=== PATIENT | female | born 1955 | race Caucasian/White ===

== ENCOUNTER 2021-03-05 17:05 | Emergency (ER) | payer MEDICARE, OTHER ==
[2021-03-05] MEDS ORDERED: Ondansetron 4 MG Tab.DIS PO ONE (18:07)
--- NOTE | 2021-03-05 18:07 | EDM.PDOC ---
ED HPI GENERAL MEDICAL PROBLEM - General Chief Complaint: Gastrointestinal Problem Stated Complaint: nausea Time Seen by Provider: 03/05/21 17:10 Source of Information: Reports: Patient, Family History Limitations: Reports: No Limitations - History of Present Illness INITIAL COMMENTS - FREE TEXT/NARRATIVE: Patient states that her made her come to come get checked out secondary to he has been around her diagnosed with Covid only complaint that the patient has at this time is just chronic nausea that is been going on for about a week. She says she has been eating and drinking normally with no issues she just has a chronic nausea feeling. She was been with the patient ever since he was diagnosed although she was not seen in the ER the other night nor has she been tested. She has no other complaints at this time states she is doing okay overall Duration: Day(s): Quality: Denies: Ache, Burning (no pain ) Improves with: Reports: None Worsens with: Reports: None Associated Symptoms: Reports: No Other Symptoms, Nausea/Vomiting. Denies: Chest Pain, Cough, cough w sputum, Diaphoresis, Fever/Chills, Headaches, Loss of Appetite, Malaise, Shortness of Breath - Related Data Allergies Allergy/AdvReac Type Severity Reaction Status Date / Time guaifenesin [From Robitussin] Allergy Nausea Verified 03/05/21 18:15 pseudoephedrine Allergy Cannot Verified 03/05/21 18:15 [From Actifed] Remember Sulfa (Sulfonamide Allergy Rash Verified 03/05/21 18:15 Antibiotics) triprolidine [From Actifed] Allergy Cannot Verified 03/05/21 18:15 Remember Home Meds: Home Meds Levothyroxine [Synthroid] 50 mcg PO DAILY 09/22/16 [History] Omeprazole 20 mg PO DAILY 09/22/16 [History] Venlafaxine HCl [Venlafaxine ER] 150 mg PO DAILY 09/22/16 [History] glipiZIDE [Glipizide] 2.5 mg PO BID 09/22/16 [History] metFORMIN HCl [Metformin HCl] 1,000 mg PO BID 09/22/16 [History] Cholecalciferol (Vitamin D3) [Vitamin D3] 1,000 unit PO DAILY 09/18/20 [History] Furosemide 20 mg PO DAILY 09/18/20 [History] Rosuvastatin [Crestor] 5 mg PO DAILY 09/18/20 [History] buPROPion HCL [Wellbutrin Xl] 300 mg PO DAILY 09/18/20 [History] Past Medical History HEENT History: Reports: Allergic Rhinitis, Cataract, Sinusitis, Other (See Below) Other HEENT History: paradoxic hearing loss; both astigmatism; dry eyes; epiphora; rt ptosis Cardiovascular History: Reports: Heart Failure, High Cholesterol, Other (See Below) Other Cardiovascular History: mitral valve prolapse Respiratory History: Reports: Sleep Apnea, Other (See Below) Other Respiratory History: Cpap with Oxygen at night Gastrointestinal History: Reports: Chronic Diarrhea, GERD, Other (See Below) Other Gastrointestinal History: Barrets Esophagus Musculoskeletal History: Reports: Back Pain, Chronic, Osteoarthritis, Other (See Below) Other Musculoskeletal History: DJD; pes planus Neurological History: Reports: Neuropathy, Diabetic Psychiatric History: Reports: Depression Endocrine/Metabolic History: Reports: Diabetes, Type II, Hypothyroidism, Obesity/BMI 30+, Vitamin D Deficiency Dermatologic History: Reports: Other (See Below) Other Dermatologic History: furuncle - Past Surgical History GI Surgical History: Reports: Cholecystectomy, Hernia Repair/Other, Other (See Below) Other GI Surgeries/Procedures: Umbilical hernia repair Female Surgical History: Reports: Breast Reduction, Hysterectomy Musculoskeletal Surgical History: Reports: Carpal Tunnel, Other (See Below) Other Musculoskeletal Surgeries/Procedures:: Neck ruptured discs, C4-5 fusion ED ROS GENERAL - Review of Systems Review Of Systems: See Below Constitutional: Reports: No Symptoms HEENT: Reports: No Symptoms Respiratory: Reports: No Symptoms Cardiovascular: Reports: No Symptoms Endocrine: Reports: No Symptoms GI/Abdominal: Reports: Nausea, Other (No loss of taste or smell). Denies: Abdominal Pain, Vomiting : Reports: No Symptoms Musculoskeletal: Reports: No Symptoms Skin: Reports: No Symptoms Neurological: Reports: No Symptoms Psychiatric: Reports: No Symptoms Hematologic/Lymphatic: Reports: No Symptoms Immunologic: Reports: No Symptoms ED EXAM, GI/ABD - Physical Exam Exam: See Below Exam Limited By: No Limitations General Appearance: Alert, WD/WN, No Apparent Distress, Other (Patient is talking wide open no acute symptoms) Eyes: Bilateral: Normal Appearance Nose: Normal Inspection, Normal Mucosa, No Blood Throat/Mouth: Normal Inspection, Normal Lips, Normal Teeth, Normal Gums, Normal Oropharynx, Normal Voice, No Airway Compromise, Other (mmm) Head: Atraumatic, Normocephalic. No: Facial Tenderness, Sinus Tenderness Neck: Normal Inspection, Supple, Non-Tender, Full Range of Motion Respiratory/Chest: No Respiratory Distress, Lungs Clear, Normal Breath Sounds, No Accessory Muscle Use, Chest Non-Tender Cardiovascular: Normal Peripheral Pulses, Regular Rate, Rhythm, No Edema, No Gallop, No JVD, No Murmur, No Rub GI/Abdominal Exam: Normal Bowel Sounds, Soft, Non-Tender, No Organomegaly, No Distention, No Abnormal Bruit Back Exam: Normal Inspection, Full Range of Motion Extremities: Normal Inspection, Normal Range of Motion, Non-Tender, No Pedal Edema, Normal Capillary Refill Neurological: Alert, Oriented, CN II-XII Intact, Normal Cognition, Normal Gait, Normal Reflexes, No Motor/Sensory Deficits Psychiatric: Normal Affect, Normal Mood Skin Exam: Warm, Dry, Intact, Normal Color, No Rash Lymphatic: No Adenopathy Course - Vital Signs Text/Narrative:: Secondary to patient being exposed to her who is positive for Covid I will not test her at this time secondary to she is only having symptoms of nausea I will give her some Zofran p.o. and a prescription Zofran 4 mg 1 p.o. every 4-6 hours as needed #30 Follow-up with your primary care provider in the next 24 to 48 hours if anything changes. Last Recorded V/S: Last Vital Signs Temp 36.6 C 03/05/21 17:10 Pulse 99 03/05/21 17:10 Resp 18 03/05/21 17:10 BP 103/50 L 03/05/21 17:10 Pulse Ox 96 03/05/21 17:10 - Orders/Labs/Meds Meds: Medications Discontinued Medications Generic Name Dose Route Start Last Admin Trade Name Freq PRN Reason Stop Dose Admin Ondansetron HCl 4 mg 03/05/21 18:07 Ondansetron 4 Mg Tab.Dis PO 03/05/21 18:08 ONETIME ONE Departure - Departure Time of Disposition: 18:00 Disposition: Home, Self-Care 01 Condition: Good Clinical Impression: Nausea - Discharge Information *PRESCRIPTION DRUG MONITORING PROGRAM REVIEWED*: No *COPY OF PRESCRIPTION DRUG MONITORING REPORT IN PATIENT MARISEL: No Instructions: Nausea, Adult Referrals: PCP,Unknown [Primary Care Provider] - Forms: ED Department Discharge Additional Instructions: Follow-up with your primary care provider make sure you are drinking plenty of fluids and getting plenty of rest as tolerated take the Zofran 4 mg 1 tablet every 4-6 hours as directed as needed If anything changes return here to the emergency room Sepsis Event Note (ED) - Focused Exam Vital Signs: Vital Signs Temp Pulse Resp BP Pulse Ox 03/05/21 17:10 36.6 C 99 18 103/50 L 96 - Problem List & Annotations (1) Nausea SNOMED Code(s): 105768851 Code(s): R11.0 - NAUSEA Status: Acute Current Visit: Yes
[2021-03-05 18:13] VITALS: BP 103/50; PULSE 99
== END 2021-03-05 20:15 | disposition home or self-care (01) ==
LOC: VM.ED 17:05
DX: R11.0 Nausea (principal); E78.00 Pure hypercholesterolemia, unspecified; I50.9 Heart failure, unspecified; E11.40 Type 2 diabetes mellitus with diabetic neuropathy, unspecified; K21.9 Gastro-esophageal reflux disease without esophagitis; E03.9 Hypothyroidism, unspecified; E66.9 Obesity, unspecified; Z88.2 Allergy status to sulfonamides; Z88.8 Allergy status to other drugs, medicaments and biological substances; Z79.84 Long term (current) use of oral hypoglycemic drugs
CPT/HCPCS: 99283

== ENCOUNTER 2021-03-08 10:50 | Observation (INO) | payer MEDICARE, OTHER ==
[2021-03-08] MEDS ORDERED: Sodium Chloride 0.9% 10 ML Syringe FLUSH PRN (11:32)
[2021-03-08] MEDS ORDERED: Ondansetron 4 MG/2 ML SDV IVPUSH ONE (11:59)
[2021-03-08] MEDS ORDERED: Sodium Chloride 0.9% 1,000 ML IV SCH (12:00)
[2021-03-08] MEDS ORDERED: Ondansetron 4 MG/2 ML SDV ONE (12:10)
[2021-03-08 12:11] LABS: CHLORIDE,CL 102 mmol/L (98-107); SODIUM,NA 140 mmol/L (136-145)
[2021-03-08 12:25] LABS: ANION GAP 13.2 mmol/L (5-15)
[2021-03-08] MEDS ORDERED: REMDESIVIR 200 MG in Sodium Chloride 0.9% 250 ML IV ONE ×2 (13:58→15:00)
--- NOTE | 2021-03-08 17:32 | EDM.PDOC ---
ED HPI GENERAL MEDICAL PROBLEM - General Stated Complaint: WEAKNESS Time Seen by Provider: 03/08/21 11:00 Source of Information: Reports: Patient, EMS History Limitations: Reports: No Limitations - History of Present Illness INITIAL COMMENTS - FREE TEXT/NARRATIVE: Pt. presents to ER with complaints of weakness, cough, congestion, and fatigue. Pt. states that her has covid, and she states that she has been having symptoms of this as well for approx. 2 weeks. She has not be screened however. Pt. denies any respiratory symptoms. Denies any shortness of breath, lightheadedness, chest pain, and only has some mild cough. Pt. states that she is particularly lightheaded when she is standing. Pt. primary complaint is that of weakness and fatigue. She states that she has not been eating or drinking, complains of some nausea and mild vomiting. Pt. lives in [place], [place] with her who is also quite ill. Neither patient feel that they are able to care for themselves at home. Onset: Today Onset Date: 03/08/21 Location: Reports: Generalized Improves with: Reports: Rest Worsens with: Reports: Movement Associated Symptoms: Reports: Cough, Fever/Chills, Malaise, Nausea/Vomiting, Weakness - Related Data Allergies Allergy/AdvReac Type Severity Reaction Status Date / Time pseudoephedrine Allergy Cannot Verified 03/05/21 18:15 [From Actifed] Remember Sulfa (Sulfonamide Allergy Rash Verified 03/05/21 18:15 Antibiotics) triprolidine [From Actifed] Allergy Cannot Verified 03/05/21 18:15 Remember guaifenesin [From Robitussin] AdvReac Nausea Verified 03/08/21 14:06 Home Meds: Home Meds Levothyroxine [Synthroid] 50 mcg PO DAILY 09/22/16 [History] Omeprazole 20 mg PO DAILY 09/22/16 [History] Venlafaxine HCl [Venlafaxine ER] 150 mg PO DAILY 09/22/16 [History] glipiZIDE [Glipizide] 2.5 mg PO BID 09/22/16 [History] metFORMIN HCl [Metformin HCl] 1,000 mg PO BID 09/22/16 [History] Cholecalciferol (Vitamin D3) [Vitamin D3] 1,000 unit PO DAILY 09/18/20 [History] Furosemide 20 mg PO DAILY 09/18/20 [History] Rosuvastatin [Crestor] 5 mg PO DAILY 09/18/20 [History] buPROPion HCL [Wellbutrin Xl] 300 mg PO DAILY 09/18/20 [History] Past Medical History HEENT History: Reports: Allergic Rhinitis, Cataract, Sinusitis, Other (See Below) Other HEENT History: paradoxic hearing loss; both astigmatism; dry eyes; epiphora; rt ptosis Cardiovascular History: Reports: Heart Failure, High Cholesterol, Other (See Below) Other Cardiovascular History: mitral valve prolapse Respiratory History: Reports: Sleep Apnea, Other (See Below) Other Respiratory History: Cpap with Oxygen at night Gastrointestinal History: Reports: Chronic Diarrhea, GERD, Other (See Below) Other Gastrointestinal History: Barrets Esophagus Musculoskeletal History: Reports: Back Pain, Chronic, Osteoarthritis, Other (See Below) Other Musculoskeletal History: DJD; pes planus Neurological History: Reports: Neuropathy, Diabetic Psychiatric History: Reports: Depression Endocrine/Metabolic History: Reports: Diabetes, Type II, Hypothyroidism, Obesity/BMI 30+, Vitamin D Deficiency Dermatologic History: Reports: Other (See Below) Other Dermatologic History: furuncle - Past Surgical History GI Surgical History: Reports: Cholecystectomy, Hernia Repair/Other, Other (See Below) Other GI Surgeries/Procedures: Umbilical hernia repair Female Surgical History: Reports: Breast Reduction, Hysterectomy Musculoskeletal Surgical History: Reports: Carpal Tunnel, Other (See Below) Other Musculoskeletal Surgeries/Procedures:: Neck ruptured discs, C4-5 fusion ED ROS GENERAL - Review of Systems Review Of Systems: See Below Constitutional: Reports: Malaise, Weakness, Fatigue HEENT: Reports: No Symptoms Respiratory: Reports: Cough Cardiovascular: Reports: No Symptoms Endocrine: Reports: No Symptoms GI/Abdominal: Reports: No Symptoms : Reports: No Symptoms Musculoskeletal: Reports: No Symptoms Skin: Reports: No Symptoms Neurological: Reports: Weakness Psychiatric: Reports: No Symptoms Hematologic/Lymphatic: Reports: No Symptoms Immunologic: Reports: No Symptoms ED EXAM, GENERAL - Physical Exam Exam: See Below Exam Limited By: No Limitations General Appearance: Alert, WD/WN, No Apparent Distress Eye Exam: Bilateral Eye: EOMI Throat/Mouth: Normal Inspection, Normal Lips, Normal Oropharynx, Normal Voice, No Airway Compromise Head: Atraumatic, Normocephalic Neck: Normal Inspection, Supple, Non-Tender, Full Range of Motion Respiratory/Chest: No Respiratory Distress, Lungs Clear, Normal Breath Sounds, No Accessory Muscle Use, Chest Non-Tender Cardiovascular: Normal Peripheral Pulses, Regular Rate, Rhythm, No Edema, No JVD, No Murmur GI/Abdominal: Normal Bowel Sounds, Soft, Non-Tender, No Organomegaly, No Distention, No Mass (Female) Exam: Deferred Rectal (Female) Exam: Deferred Extremities: Normal Inspection, Normal Range of Motion, Non-Tender, No Pedal Edema, Normal Capillary Refill Neurological: Alert, Oriented, CN II-XII Intact, Normal Cognition, Normal Reflexes, No Motor/Sensory Deficits Psychiatric: Normal Affect, Normal Mood Skin Exam: Warm, Dry, Intact, Pallor Lymphatic: No Adenopathy Course - Orders/Labs/Meds Orders: Active Orders 24 hr Category Date Time Status CULTURE BLOOD [BC] Stat Lab 03/08/21 11:26 Received CULTURE BLOOD [BC] Stat Lab 03/08/21 12:00 Received Sodium Chloride 0.9% [Normal Saline] 1,000 ml Med 03/08/21 12:00 Active IV ASDIRECTED Sodium Chloride 0.9% [Saline Flush] Med 03/08/21 11:32 Active 10 ml FLUSH ASDIRECTED PRN Blood Culture x2 Reflex Set [OM.PC] Stat Oth 03/08/21 11:33 Ordered Peripheral IV Insertion Adult [OM.PC] Routine Oth 03/08/21 11:33 Ordered Medication Orders Enoxaparin Sodium (Enoxaparin 40 Mg/0.4 Ml Syringe) 40 mg SUBCUT DAILY TORIN Sodium Chloride (Normal Saline) 1,000 mls @ 1,000 mls/hr IV ASDIRECTED TORIN Last Admin: 03/08/21 11:25 Dose: 1,000 mls/hr Documented by: WENDALA Remdesivir 100 mg/ Sodium (Chloride) 100 mls @ 100 mls/hr IV Q24H TORIN Stop: 03/12/21 16:29 Sodium Chloride (Sodium Chloride 0.9% 10 Ml Syringe) 10 ml FLUSH ASDIRECTED PRN PRN Reason: Keep Vein Open Last Admin: 03/08/21 17:17 Dose: 10 ml Documented by: MARCELINA Labs: Laboratory Tests 03/08/21 03/08/21 03/08/21 Range/Units 11:23 11:26 11:26 WBC 5.1 (4.0-10.0) x10^3/uL RBC 4.37 (4.00-5.50) x10^6/uL Hgb 14.1 (12.0-16.0) g/dL Hct 39.9 (33.0-47.0) % MCV 91.3 (78.0-93.0) fL MCH 32.3 H (26.0-32.0) pg MCHC 35.3 (32.0-36.0) g/dL RDW Coeff of Lily 12.5 (10.0-15.0) % Plt Count 224 (130-400) x10^3/uL Neut % (Auto) 65.8 (50.0-80.0) % Lymph % (Auto) 20.2 L (25.0-50.0) % [place] % (Auto) 13.4 H (2.0-11.0) % Eos % (Auto) 0.4 (0.0-4.0) % Baso % (Auto) 0.2 (0.2-1.2) % PT 11.0 (9.9-12.5) SEC INR 1.0 L (2.0-3.5) APTT (25.6-32.8) SEC Sodium (136-145) mmol/L Potassium (3.5-5.1) mmol/L Chloride (98-107) mmol/L Carbon Dioxide (21-32) mmol/L Anion Gap (5-15) mmol/L BUN (7-18) mg/dL Creatinine (0.55-1.02) mg/dL Est Cr Clr Drug Dosing Estimated GFR (MDRD) Glucose (70-99) mg/dL Lactic Acid (0.4-2.0) mmol/L Calcium (8.5-10.1) mg/dL Corrected Calcium (8.5-10.1) mg/dL Magnesium (1.8-2.4) mg/dL Ferritin (8-252) ng/mL Total Bilirubin (0.2-1.0) mg/dL AST (15-37) U/L ALT (14-59) U/L Alkaline Phosphatase (46-116) U/L Lactate Dehydrogenase (81-234) U/L C-Reactive Protein (<=0.9) mg/dL Total Protein (6.4-8.2) g/dL Albumin (3.4-5.0) g/dL Globulin Albumin/Globulin Ratio SARS CoV-2 RNA Rapid CARIE Positive H (NEGATIVE) 03/08/21 03/08/21 03/08/21 Range/Units 11:26 11:26 11:26 WBC (4.0-10.0) x10^3/uL RBC (4.00-5.50) x10^6/uL Hgb (12.0-16.0) g/dL Hct (33.0-47.0) % MCV (78.0-93.0) fL MCH (26.0-32.0) pg MCHC (32.0-36.0) g/dL RDW Coeff of Lily (10.0-15.0) % Plt Count (130-400) x10^3/uL Neut % (Auto) (50.0-80.0) % Lymph % (Auto) (25.0-50.0) % [place] % (Auto) (2.0-11.0) % Eos % (Auto) (0.0-4.0) % Baso % (Auto) (0.2-1.2) % PT (9.9-12.5) SEC INR (2.0-3.5) APTT 22.0 L (25.6-32.8) SEC Sodium 140 (136-145) mmol/L Potassium 3.2 L (3.5-5.1) mmol/L Chloride 102 (98-107) mmol/L Carbon Dioxide 28 (21-32) mmol/L Anion Gap 13.2 (5-15) mmol/L BUN 13 (7-18) mg/dL Creatinine 0.9 (0.55-1.02) mg/dL Est Cr Clr Drug Dosing TNP Estimated GFR (MDRD) > 60 Glucose 291 H (70-99) mg/dL Lactic Acid 1.6 (0.4-2.0) mmol/L Calcium 9.3 (8.5-10.1) mg/dL Corrected Calcium 9.6 (8.5-10.1) mg/dL Magnesium 1.5 L (1.8-2.4) mg/dL Ferritin (8-252) ng/mL Total Bilirubin 0.5 (0.2-1.0) mg/dL AST 51 H (15-37) U/L ALT 70 H (14-59) U/L Alkaline Phosphatase 81 (46-116) U/L Lactate Dehydrogenase 201 (81-234) U/L C-Reactive Protein 1.6 H (<=0.9) mg/dL Total Protein 7.8 (6.4-8.2) g/dL Albumin 3.6 (3.4-5.0) g/dL Globulin 4.2 Albumin/Globulin Ratio 0.86 SARS CoV-2 RNA Rapid CARIE (NEGATIVE) 03/08/21 Range/Units 11:26 WBC (4.0-10.0) x10^3/uL RBC (4.00-5.50) x10^6/uL Hgb (12.0-16.0) g/dL Hct (33.0-47.0) % MCV (78.0-93.0) fL MCH (26.0-32.0) pg MCHC (32.0-36.0) g/dL RDW Coeff of Lily (10.0-15.0) % Plt Count (130-400) x10^3/uL Neut % (Auto) (50.0-80.0) % Lymph % (Auto) (25.0-50.0) % [place] % (Auto) (2.0-11.0) % Eos % (Auto) (0.0-4.0) % Baso % (Auto) (0.2-1.2) % PT (9.9-12.5) SEC INR (2.0-3.5) APTT (25.6-32.8) SEC Sodium (136-145) mmol/L Potassium (3.5-5.1) mmol/L Chloride (98-107) mmol/L Carbon Dioxide (21-32) mmol/L Anion Gap (5-15) mmol/L BUN (7-18) mg/dL Creatinine (0.55-1.02) mg/dL Est Cr Clr Drug Dosing Estimated GFR (MDRD) Glucose (70-99) mg/dL Lactic Acid (0.4-2.0) mmol/L Calcium (8.5-10.1) mg/dL Corrected Calcium (8.5-10.1) mg/dL Magnesium (1.8-2.4) mg/dL Ferritin 500 H (8-252) ng/mL Total Bilirubin (0.2-1.0) mg/dL AST (15-37) U/L ALT (14-59) U/L Alkaline Phosphatase (46-116) U/L Lactate Dehydrogenase (81-234) U/L C-Reactive Protein (<=0.9) mg/dL Total Protein (6.4-8.2) g/dL Albumin (3.4-5.0) g/dL Globulin Albumin/Globulin Ratio SARS CoV-2 RNA Rapid CARIE (NEGATIVE) Meds: Medications Generic Name Dose Route Start Last Admin Trade Name Freq PRN Reason Stop Dose Admin Enoxaparin Sodium 40 mg 03/08/21 17:30 Enoxaparin 40 Mg/0.4 Ml Syringe SUBCUT DAILY TORIN Sodium Chloride 1,000 mls @ 1,000 mls/hr 03/08/21 12:00 03/08/21 11:25 Normal Saline IV 1,000 mls/hr ASDIRECTED TORIN Administration Remdesivir 100 mg/ Sodium 100 mls @ 100 mls/hr 03/09/21 15:30 Chloride IV 03/12/21 16:29 Q24H TORIN Sodium Chloride 10 ml 03/08/21 11:32 03/08/21 17:17 Sodium Chloride 0.9% 10 Ml Syringe FLUSH 10 ml ASDIRECTED PRN Administration Keep Vein Open Discontinued Medications Generic Name Dose Route Start Last Admin Trade Name Freq PRN Reason Stop Dose Admin Remdesivir 200 mg/ Sodium 250 mls @ 250 mls/hr 03/08/21 15:00 03/08/21 17:13 Chloride IV 03/08/21 15:59 250 mls/hr ONETIME ONE Administration Ondansetron HCl 4 mg 03/08/21 11:59 03/08/21 12:16 Ondansetron 4 Mg/2 Ml Sdv IVPUSH 03/08/21 12:00 4 mg ONETIME ONE Administration Ondansetron HCl Confirm 03/08/21 12:10 03/08/21 12:19 Ondansetron 4 Mg/2 Ml Sdv Administered 03/08/21 12:11 Not Given Dose 4 mg .ROUTE .STK-MED ONE Departure - Departure Time of Disposition: 14:00 Disposition: Home, Self-Care 01 Clinical Impression: COVID-19 - Discharge Information - Problem List Review Problem List Initiated/Reviewed/Updated: Yes - My Orders Last 24 Hours: My Active Orders 03/08/21 11:26 CULTURE BLOOD [BC] Stat 03/08/21 11:32 Sodium Chloride 0.9% [Saline Flush] 10 ml FLUSH ASDIRECTED PRN 03/08/21 11:33 Blood Culture x2 Reflex Set [OM.PC] Stat Peripheral IV Insertion Adult [OM.PC] Routine 03/08/21 12:00 CULTURE BLOOD [BC] Stat Sodium Chloride 0.9% [Normal Saline] 1,000 ml IV ASDIRECTED - Assessment/Plan Last 24 Hours: My Active Orders 03/08/21 11:26 CULTURE BLOOD [BC] Stat 03/08/21 11:32 Sodium Chloride 0.9% [Saline Flush] 10 ml FLUSH ASDIRECTED PRN 03/08/21 11:33 Blood Culture x2 Reflex Set [OM.PC] Stat Peripheral IV Insertion Adult [OM.PC] Routine 03/08/21 12:00 CULTURE BLOOD [BC] Stat Sodium Chloride 0.9% [Normal Saline] 1,000 ml IV ASDIRECTED Plan: Pt. will be admitted observation. Pt. is a code 2, DNR/DNI. Pt. was started on remdesivir. Lovenox for DVT prophylaxis. No further fluids were given. She was given a liter of normal saline in ER. ADA diet. Anticipate discharge hopefully tomorrow.
[2021-03-08] MEDS: Enoxaparin 40 MG/0.4 ML Syringe SUBCUT SCH (19:10)
[2021-03-08] MEDS ORDERED: Ondansetron 4 MG/2 ML SDV IVPUSH PRN (21:36)
[2021-03-08] MEDS ORDERED: Acetaminophen 500 MG Tab PO PRN (21:49)
[2021-03-09 07:32] LABS: CHLORIDE,CL 106 mmol/L (98-107); SODIUM,NA 142 mmol/L (136-145)
[2021-03-09] MEDS ORDERED: Omeprazole 20 MG Cap.CR PO SCH ×2 (08:30→20:00)
--- NOTE | 2021-03-09 08:37 | PCM.PN ---
- General Info Date of Service: 03/09/21 Subjective Update: Pt. admitted late yesterday afternoon with weakness, nausea, and cough due to covid 19. She was given her first dose of Remdesivir and tolerated this well but did become nauseated. She was started on IV zofran which has helped significantly. She has been able to get up and use the toilet with assistance. She continues to cough when she takes a deep breath. It has been non-productive. Pt. has noted that her urine is quite concentrated. She states that she has been trying to drink. She had had decreased intake of fluids prior to coming to ER yesterday. She was only given a liter of NS and IV fluids were discontinued in the hopes that she was drink adequately. Pt. potassium today decreased from 3.2 to 3.0. No other significant lab changes. Blood sugar was 198 this AM. She states that she has not felt much like eating. Functional Status: Reports: Pain Controlled, Ambulating, Urinating - Review of Systems General: Reports: Weakness, Fatigue, Malaise HEENT: Reports: No Symptoms Pulmonary: Reports: Shortness of Breath, Cough Cardiovascular: Reports: No Symptoms Gastrointestinal: Reports: No Symptoms Genitourinary: Reports: No Symptoms Musculoskeletal: Reports: No Symptoms Skin: Reports: No Symptoms Neurological: Reports: Weakness Psychiatric: Reports: No Symptoms - Patient Data Vitals - Most Recent: Last Vital Signs Temp 36.3 C 03/09/21 06:00 Pulse 64 03/09/21 06:00 Resp 16 03/09/21 06:00 BP 130/65 03/09/21 06:00 Pulse Ox 92 L 03/09/21 06:00 Weight - Most Recent: 104.326 kg I&O - Last 24 Hours: Intake & Output 03/08/21 03/09/21 03/09/21 22:59 06:59 14:59 Output Total 450 Balance -450 Lab Results Last 24 Hours: Laboratory Results - last 24 hr 03/08/21 03/08/21 03/08/21 Range/Units 11:23 11:26 11:26 WBC 5.1 (4.0-10.0) x10^3/uL RBC 4.37 (4.00-5.50) x10^6/uL Hgb 14.1 (12.0-16.0) g/dL Hct 39.9 (33.0-47.0) % MCV 91.3 (78.0-93.0) fL MCH 32.3 H (26.0-32.0) pg MCHC 35.3 (32.0-36.0) g/dL RDW Coeff of Lily 12.5 (10.0-15.0) % Plt Count 224 (130-400) x10^3/uL Neut % (Auto) 65.8 (50.0-80.0) % Lymph % (Auto) 20.2 L (25.0-50.0) % [place] % (Auto) 13.4 H (2.0-11.0) % Eos % (Auto) 0.4 (0.0-4.0) % Baso % (Auto) 0.2 (0.2-1.2) % PT 11.0 (9.9-12.5) SEC INR 1.0 L (2.0-3.5) APTT (25.6-32.8) SEC Sodium (136-145) mmol/L Potassium (3.5-5.1) mmol/L Chloride (98-107) mmol/L Carbon Dioxide (21-32) mmol/L Anion Gap (5-15) mmol/L BUN (7-18) mg/dL Creatinine (0.55-1.02) mg/dL Est Cr Clr Drug Dosing Estimated GFR (MDRD) Glucose (70-99) mg/dL Lactic Acid (0.4-2.0) mmol/L Calcium (8.5-10.1) mg/dL Corrected Calcium (8.5-10.1) mg/dL Magnesium (1.8-2.4) mg/dL Ferritin (8-252) ng/mL Total Bilirubin (0.2-1.0) mg/dL AST (15-37) U/L ALT (14-59) U/L Alkaline Phosphatase (46-116) U/L Lactate Dehydrogenase (81-234) U/L C-Reactive Protein (<=0.9) mg/dL Total Protein (6.4-8.2) g/dL Albumin (3.4-5.0) g/dL Globulin Albumin/Globulin Ratio SARS CoV-2 RNA Rapid CARIE Positive H (NEGATIVE) 03/08/21 03/08/2121 Range/Units 11:26 11:26 11:26 WBC (4.0-10.0) x10^3/uL RBC (4.00-5.50) x10^6/uL Hgb (12.0-16.0) g/dL Hct (33.0-47.0) % MCV (78.0-93.0) fL MCH (26.0-32.0) pg MCHC (32.0-36.0) g/dL RDW Coeff of Lily (10.0-15.0) % Plt Count (130-400) x10^3/uL Neut % (Auto) (50.0-80.0) % Lymph % (Auto) (25.0-50.0) % [place] % (Auto) (2.0-11.0) % Eos % (Auto) (0.0-4.0) % Baso % (Auto) (0.2-1.2) % PT (9.9-12.5) SEC INR (2.0-3.5) APTT 22.0 L (25.6-32.8) SEC Sodium 140 (136-145) mmol/L Potassium 3.2 L (3.5-5.1) mmol/L Chloride 102 (98-107) mmol/L Carbon Dioxide 28 (21-32) mmol/L Anion Gap 13.2 (5-15) mmol/L BUN 13 (7-18) mg/dL Creatinine 0.9 (0.55-1.02) mg/dL Est Cr Clr Drug Dosing TNP Estimated GFR (MDRD) > 60 Glucose 291 H (70-99) mg/dL Lactic Acid 1.6 (0.4-2.0) mmol/L Calcium 9.3 (8.5-10.1) mg/dL Corrected Calcium 9.6 (8.5-10.1) mg/dL Magnesium 1.5 L (1.8-2.4) mg/dL Ferritin (8-252) ng/mL Total Bilirubin 0.5 (0.2-1.0) mg/dL AST 51 H (15-37) U/L ALT 70 H (14-59) U/L Alkaline Phosphatase 81 (46-116) U/L Lactate Dehydrogenase 201 (81-234) U/L C-Reactive Protein 1.6 H (<=0.9) mg/dL Total Protein 7.8 (6.4-8.2) g/dL Albumin 3.6 (3.4-5.0) g/dL Globulin 4.2 Albumin/Globulin Ratio 0.86 SARS CoV-2 RNA Rapid CARIE (NEGATIVE) 03/08/21 03/09/21 03/09/21 Range/Units 11:26 06:45 06:45 WBC 4.5 (4.0-10.0) x10^3/uL RBC 3.87 L (4.00-5.50) x10^6/uL Hgb 12.5 D (12.0-16.0) g/dL Hct 35.8 (33.0-47.0) % MCV 92.5 (78.0-93.0) fL MCH 32.3 H (26.0-32.0) pg MCHC 34.9 (32.0-36.0) g/dL RDW Coeff of Lily 12.5 (10.0-15.0) % Plt Count 204 (130-400) x10^3/uL Neut % (Auto) (50.0-80.0) % Lymph % (Auto) (25.0-50.0) % [place] % (Auto) (2.0-11.0) % Eos % (Auto) (0.0-4.0) % Baso % (Auto) (0.2-1.2) % PT (9.9-12.5) SEC INR (2.0-3.5) APTT (25.6-32.8) SEC Sodium 142 (136-145) mmol/L Potassium 3.0 L (3.5-5.1) mmol/L Chloride 106 (98-107) mmol/L Carbon Dioxide 29 (21-32) mmol/L Anion Gap 10.0 (5-15) mmol/L BUN 12 (7-18) mg/dL Creatinine 0.8 (0.55-1.02) mg/dL Est Cr Clr Drug Dosing 63.01 Estimated GFR (MDRD) > 60 Glucose 198 H (70-99) mg/dL Lactic Acid (0.4-2.0) mmol/L Calcium 9.2 (8.5-10.1) mg/dL Corrected Calcium 9.9 (8.5-10.1) mg/dL Magnesium (1.8-2.4) mg/dL Ferritin 500 H (8-252) ng/mL Total Bilirubin 0.5 (0.2-1.0) mg/dL AST 37 (15-37) U/L ALT 55 (14-59) U/L Alkaline Phosphatase 73 (46-116) U/L Lactate Dehydrogenase (81-234) U/L C-Reactive Protein (<=0.9) mg/dL Total Protein 6.6 (6.4-8.2) g/dL Albumin 3.1 L (3.4-5.0) g/dL Globulin 3.5 Albumin/Globulin Ratio 0.89 SARS CoV-2 RNA Rapid CARIE (NEGATIVE) Med Orders - Current: Current Medications Acetaminophen (Acetaminophen 500 Mg Tab) 1,000 mg PO Q6H PRN PRN Reason: Pain Last Admin: 03/08/21 22:01 Dose: 1,000 mg Documented by: Enoxaparin Sodium (Enoxaparin 40 Mg/0.4 Ml Syringe) 40 mg SUBCUT DAILY [facility] Last Admin: 03/08/21 19:10 Dose: 40 mg Documented by: Furosemide (Furosemide 20 Mg Tab) 20 mg PO DAILY [facility] Glipizide (Glipizide 5 Mg Tab) 2.5 mg PO BID [facility] Sodium Chloride (Normal Saline) 1,000 mls @ 1,000 mls/hr IV ASDIRECTED [facility] Last Admin: 03/08/21 11:25 Dose: 1,000 mls/hr Documented by: Remdesivir 100 mg/ Sodium (Chloride) 100 mls @ 100 mls/hr IV Q24H [facility] Stop: 03/12/21 16:29 Potassium Chloride/Sodium Chloride (Normal Saline With 40 Meq Kcl) 1,000 mls @ 125 mls/hr IV ASDIRECTED [facility] Levothyroxine Sodium (Levothyroxine 50 Mcg Tab) 50 mcg PO DAILY [facility] Metformin HCl (Metformin 500 Mg Tab) 1,000 mg PO BID [facility] Non-Formulary Medication (Bupropion Hcl [Wellbutrin Xl]) 300 mg PO DAILY [facility] Non-Formulary Medication (Cholecalciferol (Vitamin D3) [Vitamin D3]) 1,000 unit PO DAILY [facility] Non-Formulary Medication (Rosuvastatin [Crestor]) 5 mg PO DAILY [facility] Omeprazole (Omeprazole 20 Mg Cap.Cr) 20 mg PO DAILY [facility] Ondansetron HCl (Ondansetron 4 Mg/2 Ml Sdv) 4 mg IVPUSH Q6H PRN PRN Reason: Nausea Sodium Chloride (Sodium Chloride 0.9% 10 Ml Syringe) 10 ml FLUSH ASDIRECTED PRN PRN Reason: Keep Vein Open Last Admin: 03/08/21 17:17 Dose: 10 ml Documented by: Venlafaxine HCl (Venlafaxine 150 Mg Cap.Er) 150 mg PO DAILY [facility] Discontinued Medications Remdesivir 200 mg/ Sodium (Chloride) 250 mls @ 250 mls/hr IV ONETIME ONE Stop: 03/08/21 15:59 Last Admin: 03/08/21 17:13 Dose: 250 mls/hr Documented by: Ondansetron HCl (Ondansetron 4 Mg/2 Ml Sdv) 4 mg IVPUSH ONETIME ONE Stop: 03/08/21 12:00 Last Admin: 03/08/21 12:16 Dose: 4 mg Documented by: Ondansetron HCl (Ondansetron 4 Mg/2 Ml Sdv) Confirm Administered Dose 4 mg .ROUTE .STK-MED ONE Stop: 03/08/21 12:11 Last Admin: 03/08/21 12:19 Dose: Not Given Documented by: - Exam General: Alert, Oriented HEENT: Pupils Equal, Pupils Reactive, EOMI, Mucous Membr. Moist/[place] Lungs: Normal Respiratory Effort, Decreased Breath Sounds Cardiovascular: Regular Rate, Regular Rhythm GI/Abdominal Exam: Soft, Non-Tender, No Distention, No Mass (Female) Exam: Deferred Back Exam: Normal Inspection Extremities: Normal Inspection, Normal Range of Motion, Non-Tender, No Pedal Edema, Normal Capillary Refill Peripheral Pulses: 4+: Radial (L) Skin: Warm, Dry, Intact Neurological: No New Focal Deficit Psy/Mental Status: Alert, Normal Affect, Normal Mood - Patient Data Lab Results Last 24 hrs: Laboratory Results - last 24 hr 03/08/21 03/08/21 03/08/21 Range/Units 11:23 11:26 11:26 WBC 5.1 (4.0-10.0) x10^3/uL RBC 4.37 (4.00-5.50) x10^6/uL Hgb 14.1 (12.0-16.0) g/dL Hct 39.9 (33.0-47.0) % MCV 91.3 (78.0-93.0) fL MCH 32.3 H (26.0-32.0) pg MCHC 35.3 (32.0-36.0) g/dL RDW Coeff of Lily 12.5 (10.0-15.0) % Plt Count 224 (130-400) x10^3/uL Neut % (Auto) 65.8 (50.0-80.0) % Lymph % (Auto) 20.2 L (25.0-50.0) % [place] % (Auto) 13.4 H (2.0-11.0) % Eos % (Auto) 0.4 (0.0-4.0) % Baso % (Auto) 0.2 (0.2-1.2) % PT 11.0 (9.9-12.5) SEC INR 1.0 L (2.0-3.5) APTT (25.6-32.8) SEC Sodium (136-145) mmol/L Potassium (3.5-5.1) mmol/L Chloride (98-107) mmol/L Carbon Dioxide (21-32) mmol/L Anion Gap (5-15) mmol/L BUN (7-18) mg/dL Creatinine (0.55-1.02) mg/dL Est Cr Clr Drug Dosing Estimated GFR (MDRD) Glucose (70-99) mg/dL Lactic Acid (0.4-2.0) mmol/L Calcium (8.5-10.1) mg/dL Corrected Calcium (8.5-10.1) mg/dL Magnesium (1.8-2.4) mg/dL Ferritin (8-252) ng/mL Total Bilirubin (0.2-1.0) mg/dL AST (15-37) U/L ALT (14-59) U/L Alkaline Phosphatase (46-116) U/L Lactate Dehydrogenase (81-234) U/L C-Reactive Protein (<=0.9) mg/dL Total Protein (6.4-8.2) g/dL Albumin (3.4-5.0) g/dL Globulin Albumin/Globulin Ratio SARS CoV-2 RNA Rapid CARIE Positive H (NEGATIVE) 03/08/21 03/08/21 03/08/21 Range/Units 11:26 11:26 11:26 WBC (4.0-10.0) x10^3/uL RBC (4.00-5.50) x10^6/uL Hgb (12.0-16.0) g/dL Hct (33.0-47.0) % MCV (78.0-93.0) fL MCH (26.0-32.0) pg MCHC (32.0-36.0) g/dL RDW Coeff of Lily (10.0-15.0) % Plt Count (130-400) x10^3/uL Neut % (Auto) (50.0-80.0) % Lymph % (Auto) (25.0-50.0) % [place] % (Auto) (2.0-11.0) % Eos % (Auto) (0.0-4.0) % Baso % (Auto) (0.2-1.2) % PT (9.9-12.5) SEC INR (2.0-3.5) APTT 22.0 L (25.6-32.8) SEC Sodium 140 (136-145) mmol/L Potassium 3.2 L (3.5-5.1) mmol/L Chloride 102 (98-107) mmol/L Carbon Dioxide 28 (21-32) mmol/L Anion Gap 13.2 (5-15) mmol/L BUN 13 (7-18) mg/dL Creatinine 0.9 (0.55-1.02) mg/dL Est Cr Clr Drug Dosing TNP Estimated GFR (MDRD) > 60 Glucose 291 H (70-99) mg/dL Lactic Acid 1.6 (0.4-2.0) mmol/L Calcium 9.3 (8.5-10.1) mg/dL Corrected Calcium 9.6 (8.5-10.1) mg/dL Magnesium 1.5 L (1.8-2.4) mg/dL Ferritin (8-252) ng/mL Total Bilirubin 0.5 (0.2-1.0) mg/dL AST 51 H (15-37) U/L ALT 70 H (14-59) U/L Alkaline Phosphatase 81 (46-116) U/L Lactate Dehydrogenase 201 (81-234) U/L C-Reactive Protein 1.6 H (<=0.9) mg/dL Total Protein 7.8 (6.4-8.2) g/dL Albumin 3.6 (3.4-5.0) g/dL Globulin 4.2 Albumin/Globulin Ratio 0.86 SARS CoV-2 RNA Rapid CARIE (NEGATIVE) 03/08/21 03/09/21 03/09/21 Range/Units 11:26 06:45 06:45 WBC 4.5 (4.0-10.0) x10^3/uL RBC 3.87 L (4.00-5.50) x10^6/uL Hgb 12.5 D (12.0-16.0) g/dL Hct 35.8 (33.0-47.0) % MCV 92.5 (78.0-93.0) fL MCH 32.3 H (26.0-32.0) pg MCHC 34.9 (32.0-36.0) g/dL RDW Coeff of Lily 12.5 (10.0-15.0) % Plt Count 204 (130-400) x10^3/uL Neut % (Auto) (50.0-80.0) % Lymph % (Auto) (25.0-50.0) % [place] % (Auto) (2.0-11.0) % Eos % (Auto) (0.0-4.0) % Baso % (Auto) (0.2-1.2) % PT (9.9-12.5) SEC INR (2.0-3.5) APTT (25.6-32.8) SEC Sodium 142 (136-145) mmol/L Potassium 3.0 L (3.5-5.1) mmol/L Chloride 106 (98-107) mmol/L Carbon Dioxide 29 (21-32) mmol/L Anion Gap 10.0 (5-15) mmol/L BUN 12 (7-18) mg/dL Creatinine 0.8 (0.55-1.02) mg/dL Est Cr Clr Drug Dosing 63.01 Estimated GFR (MDRD) > 60 Glucose 198 H (70-99) mg/dL Lactic Acid (0.4-2.0) mmol/L Calcium 9.2 (8.5-10.1) mg/dL Corrected Calcium 9.9 (8.5-10.1) mg/dL Magnesium (1.8-2.4) mg/dL Ferritin 500 H (8-252) ng/mL Total Bilirubin 0.5 (0.2-1.0) mg/dL AST 37 (15-37) U/L ALT 55 (14-59) U/L Alkaline Phosphatase 73 (46-116) U/L Lactate Dehydrogenase (81-234) U/L C-Reactive Protein (<=0.9) mg/dL Total Protein 6.6 (6.4-8.2) g/dL Albumin 3.1 L (3.4-5.0) g/dL Globulin 3.5 Albumin/Globulin Ratio 0.89 SARS CoV-2 RNA Rapid CARIE (NEGATIVE) Result Diagrams: 03/09/21 06:45 03/09/21 06:45 Sepsis Event Note - Evaluation Sepsis Screening Result: No Definite Risk - Focused Exam Vital Signs: Vital Signs Temp Pulse Resp BP Pulse Ox 03/09/21 06:00 36.3 C 64 16 130/65 92 L 03/09/21 01:43 36.1 C 91 16 129/76 96 03/08/21 22:00 79 18 103/63 95 - Problem List Review Problem List Initiated/Reviewed/Updated: Yes - My Orders Last 24 Hours: My Active Orders 03/08/21 11:26 CULTURE BLOOD [BC] Stat 03/08/21 11:32 Sodium Chloride 0.9% [Saline Flush] 10 ml FLUSH ASDIRECTED PRN 03/08/21 11:33 Blood Culture x2 Reflex Set [OM.PC] Stat Peripheral IV Insertion Adult [OM.PC] Routine 03/08/21 12:00 CULTURE BLOOD [BC] Stat Sodium Chloride 0.9% [Normal Saline] 1,000 ml IV ASDIRECTED 03/08/21 13:55 Patient Status [ADT] Routine 03/08/21 15:18 Cardiac Monitoring [RC] 02,06,10,14,18,22 Intake and Output [RC] 06,18 Oxygen Therapy [RC] .PRN Up With Assistance [RC] 08,20 VTE/DVT Education [RC] .PRN Vital Signs [RC] 02,06,10,14,18,22 03/08/21 15:20 Code Status [Resuscitation Status] Routine 03/08/21 [place] [employer] [place] [employer] Diet [DIET] Enoxaparin [Lovenox] 40 mg SUBCUT DAILY 03/08/21 21:36 Ondansetron [Zofran] 4 mg IVPUSH Q6H PRN 03/08/21 21:49 Acetaminophen [Tylenol Extra Strength] 1,000 mg PO Q6H PRN 03/09/21 08:06 Blood Glucose Check, Bedside [RC] TIDMEALS 03/09/21 08:30 Cholecalciferol (Vitamin D3) [Vitamin D3] 1,000 unit PO DAILY Furosemide [Lasix] 20 mg PO DAILY Levothyroxine [Synthroid] 50 mcg PO DAILY Omeprazole 20 mg PO DAILY Rosuvastatin [Crestor] 5 mg PO DAILY Venlafaxine [Effexor XR] 150 mg PO DAILY buPROPion HCL [Wellbutrin Xl] 300 mg PO DAILY glipiZIDE [Glucotrol] 2.5 mg PO BID metFORMIN [Glucophage] 1,000 mg PO BID 03/09/21 08:45 Sodium Chloride 0.9% with KCl [Normal Saline with 40 mEq KCl] 1,000 ml IV ASDIRECTED 03/09/21 15:30 Remdesivir 100 mg Sodium Chloride 0.9% [Normal Saline] 100 ml IV Q24H 03/10/21 14:00 HEPATIC FUNCTION PANEL,HFP [CHEM] DAILY 03/10/21 15:30 HEPATIC FUNCTION PANEL,HFP [CHEM] DAILY 03/11/21 14:00 HEPATIC FUNCTION PANEL,HFP [CHEM] DAILY 03/11/21 15:30 HEPATIC FUNCTION PANEL,HFP [CHEM] DAILY 03/12/21 07:00 CBC W/O DIFF,HEMOGRAM [HEME] Q3D 03/12/21 14:00 HEPATIC FUNCTION PANEL,HFP [CHEM] DAILY 03/12/21 15:30 HEPATIC FUNCTION PANEL,HFP [CHEM] DAILY 03/15/21 07:00 CBC W/O DIFF,HEMOGRAM [HEME] Q3D 03/18/21 07:00 CBC W/O DIFF,HEMOGRAM [HEME] Q3D 03/21/21 07:00 CBC W/O DIFF,HEMOGRAM [HEME] Q3D 03/24/21 07:00 CBC W/O DIFF,HEMOGRAM [HEME] Q3D 03/27/21 07:00 CBC W/O DIFF,HEMOGRAM [HEME] Q3D - Plan Plan:: Continue observation admission. Continue Remdesivir per protocol. Start NS with 40KCL at 125ml/hr. Continue lovenox for DVT prophylaxis. Tylenol 1000mg ever 6 hours for headache/discomfort. No PT or OT was ordered as the pt. is positive for covid/to minimize exposure of staff. Pt. was encouraged to ambulate as able with aid.
[2021-03-09] MEDS ORDERED: Sodium Chloride 0.9% with KCl 1,000 ML IV SCH (08:45)
[2021-03-09] MEDS: Enoxaparin 40 MG/0.4 ML Syringe SUBCUT SCH (10:23)
[2021-03-09] MEDS: metFORMIN 500 MG Tab PO SCH ×2 (10:24→17:47)
[2021-03-09] MEDS: Furosemide 20 MG Tab PO SCH (10:24)
[2021-03-09] MEDS: Cholecalciferol (Vitamin D3) 25 MCG Tab PO SCH (10:24)
[2021-03-09] MEDS: buPROPion 150 MG Tab.ER PO SCH (10:24)
[2021-03-09] MEDS: glipiZIDE 5 MG Tab PO SCH ×4 (10:25→17:47)
[2021-03-09] MEDS: Venlafaxine 150 MG Cap.ER PO SCH (10:26)
[2021-03-09] MEDS: Levothyroxine 50 MCG Tab PO SCH (10:41)
[2021-03-09] MEDS: REMDESIVIR 100 MG in Sodium Chloride 0.9% 100 ML IV SCH (16:22)
[2021-03-09] MEDS: Potassium Chloride 20 MEQ Tab.ER PO SCH (22:36)
[2021-03-10] MEDS ORDERED: atorvaSTATin 10 MG Tab PO SCH (08:00)
[2021-03-10] MEDS: Enoxaparin 40 MG/0.4 ML Syringe SUBCUT SCH (08:47)
[2021-03-10] MEDS: glipiZIDE 5 MG Tab PO SCH ×2 (08:47→18:14)
[2021-03-10] MEDS: buPROPion 150 MG Tab.ER PO SCH (08:47)
[2021-03-10] MEDS: Furosemide 20 MG Tab PO SCH (08:47)
[2021-03-10] MEDS: Potassium Chloride 20 MEQ Tab.ER PO SCH (08:49)
[2021-03-10] MEDS: Venlafaxine 150 MG Cap.ER PO SCH (08:49)
[2021-03-10] MEDS: Cholecalciferol (Vitamin D3) 25 MCG Tab PO SCH (08:51)
[2021-03-10] MEDS: Levothyroxine 50 MCG Tab PO SCH (08:51)
[2021-03-10] MEDS: metFORMIN 500 MG Tab PO SCH ×2 (08:52→18:14)
--- NOTE | 2021-03-10 10:25 | PCM.DCSUM1 ---
Discharge Summary - Hospital Course HPI Initial Comments: Patient was admitted to the hospital for weakness and fatigue secondary to covid-19. Brief History: She was admitted through the emergency department approximately 24 hours ago for weakness, nausea, generalized fatigue after 7 days ofGnosis COVID-19. Patient states that she is feeling much better. She feels well rested. She feels like she is at her baseline. She has not needed any supplemental oxygen. Patient is eating and drinking without any concerns. Vital signs of remained stable throughout the night. Patient feels that she is appropriate and is able to go home. Diagnosis: Stroke: No Modified Bela Scale: No Symptoms at All Modified Bela Scale Score: 0 - Discharge Data Discharge Date: 03/10/22 Discharge Disposition: Home, Self-Care 01 Condition: Good - Referral to Home Health Date of Face to Face Encounter: 03/10/21 Primary Care Physician: Shaka Rizzo PA-C - Discharge Diagnosis/Problem(s) (1) COVID-19 SNOMED Code(s): 977113578 ICD Code: U07.1 - COVID-19 Status: Acute Current Visit: Yes (2) Episodic lightheadedness SNOMED Code(s): 493594601 ICD Code: R42 - DIZZINESS AND GIDDINESS Status: Acute Current Visit: No (3) Nausea SNOMED Code(s): 615254469 ICD Code: R11.0 - NAUSEA Status: Acute Current Visit: No - Patient Instructions Diet: Usual Diet as Tolerated Activity: As Tolerated Driving: May Drive Today Showering/Bathing: May Shower - Discharge Plan *PRESCRIPTION DRUG MONITORING PROGRAM REVIEWED*: Not Applicable Home Medications: Home Meds Levothyroxine [Synthroid] 50 mcg PO DAILY 09/22/16 [History] Omeprazole 20 mg PO DAILY 09/22/16 [History] Venlafaxine HCl [Venlafaxine ER] 150 mg PO DAILY 09/22/16 [History] glipiZIDE [Glipizide] 5 mg PO BID 09/22/16 [History] metFORMIN HCl [Metformin HCl] 1,000 mg PO BID 09/22/16 [History] Cholecalciferol (Vitamin D3) [Vitamin D3] 1,000 unit PO DAILY 09/18/20 [History] Furosemide 20 mg PO DAILY 09/18/20 [History] Rosuvastatin [Crestor] 5 mg PO DAILY 09/18/20 [History] buPROPion HCL [Wellbutrin Xl] 300 mg PO DAILY 09/18/20 [History] Oxygen Therapy Mode: Room Air Patient Handouts: COVID-19 Frequently Asked Questions, What You Should Know About COVID-19 to Protect Yourself and Others - [facility] [place] COVID-[place]: Quarantine vs. Isolation - [facility] [place] Forms: ED Department Discharge Referrals: Shaka Rizzo PA-C [Primary Care Provider] - - Discharge Summary/Plan Comment DC Time >30 min.: No - General Info Date of Service: 03/10/21 Functional Status: Reports: Tolerating Diet, Ambulating - Review of Systems General: Reports: Weakness (getting better. ), Fatigue, Malaise HEENT: Reports: No Symptoms Pulmonary: Reports: No Symptoms Cardiovascular: Reports: No Symptoms Gastrointestinal: Reports: No Symptoms Genitourinary: Reports: No Symptoms Musculoskeletal: Reports: No Symptoms Skin: Reports: No Symptoms Neurological: Reports: No Symptoms Psychiatric: Reports: No Symptoms - Patient Data Vitals - Most Recent: Last Vital Signs Temp 36.2 C 03/10/21 06:35 Pulse 73 03/10/21 06:35 Resp 16 03/10/21 06:35 BP 111/59 L 03/10/21 06:35 Pulse Ox 98 03/10/21 08:00 Weight - Most Recent: 104.326 kg I&O - Last 24 hours: Intake & Output 03/09/21 03/10/21 03/10/21 22:59 06:59 14:59 Intake Total 1100 Output Total 0 Balance 1100 Lab Results - Last 24 hrs: Laboratory Results - last 24 hr 03/09/21 03/09/21 03/10/21 Range/Units 11:55 17:51 05:44 POC Glucose 298 H 158 H 160 H (70-99) mg/dL DEENA Results - Last 24 hrs: Microbiology 03/08/21 11:26 Aerobic Blood Culture - Preliminary Blood - Venous NO GROWTH AFTER 1 DAY Anaerobic Blood Culture - Preliminary NO GROWTH AFTER 1 DAY 03/08/21 12:00 Aerobic Blood Culture - Preliminary Blood - Venous - Lab Draw NO GROWTH AFTER 1 DAY Anaerobic Blood Culture - Preliminary NO GROWTH AFTER 1 DAY Med Orders - Current: Current Medications Acetaminophen (Acetaminophen 500 Mg Tab) 1,000 mg PO Q6H PRN PRN Reason: Pain Last Admin: 03/08/21 22:01 Dose: 1,000 mg Documented by: Atorvastatin Calcium (Atorvastatin 10 Mg Tab) 20 mg PO DAILY [facility] Last Admin: 03/10/21 08:47 Dose: 20 mg Documented by: Bupropion HCl (Bupropion 150 Mg Tab.Er) 300 mg PO DAILY [facility] Last Admin: 03/10/21 08:47 Dose: 300 mg Documented by: Cholecalciferol (Cholecalciferol (Vitamin D3) 25 Mcg Tab) 25 mcg PO DAILY [facility] Last Admin: 03/10/21 08:51 Dose: 25 mcg Documented by: Enoxaparin Sodium (Enoxaparin 40 Mg/0.4 Ml Syringe) 40 mg SUBCUT DAILY [facility] Last Admin: 03/10/21 08:47 Dose: 40 mg Documented by: Furosemide (Furosemide 20 Mg Tab) 20 mg PO DAILY [facility] Last Admin: 03/10/21 08:47 Dose: 20 mg Documented by: Glipizide (Glipizide 5 Mg Tab) 5 mg PO BIDMEALS [facility] Last Admin: 03/10/21 08:47 Dose: 5 mg Documented by: Remdesivir 100 mg/ Sodium (Chloride) 100 mls @ 100 mls/hr IV Q24H [facility] Stop: 03/12/21 15:59 Last Admin: 03/09/21 16:22 Dose: 100 mls/hr Documented by: Levothyroxine Sodium (Levothyroxine 50 Mcg Tab) 50 mcg PO DAILY [facility] Last Admin: 03/10/21 08:51 Dose: 50 mcg Documented by: Metformin HCl (Metformin 500 Mg Tab) 1,000 mg PO BIDMEALS [facility] Last Admin: 03/10/21 08:52 Dose: 1,000 mg Documented by: Omeprazole (Omeprazole 20 Mg Cap.Cr) 20 mg PO BEDTIME [facility] Last Admin: 03/09/21 21:29 Dose: 20 mg Documented by: Ondansetron HCl (Ondansetron 4 Mg/2 Ml Sdv) 4 mg IVPUSH Q6H PRN PRN Reason: Nausea Potassium Chloride (Potassium Chloride 20 Meq Tab.Er) 20 meq PO DAILY [facility] Last Admin: 03/10/21 08:49 Dose: 20 meq Documented by: Sodium Chloride (Sodium Chloride 0.9% 10 Ml Syringe) 10 ml FLUSH ASDIRECTED PRN PRN Reason: Keep Vein Open Last Admin: 03/08/21 17:17 Dose: 10 ml Documented by: Venlafaxine HCl (Venlafaxine 150 Mg Cap.Er) 150 mg PO DAILY [facility] Last Admin: 03/10/21 08:49 Dose: 150 mg Documented by: Discontinued Medications Glipizide (Glipizide 5 Mg Tab) 2.5 mg PO BID [facility] Last Admin: 03/09/21 10:50 Dose: Not Given Documented by: Sodium Chloride (Normal Saline) 1,000 mls @ 1,000 mls/hr IV ASDIRECTED [facility] Last Admin: 03/08/21 11:25 Dose: 1,000 mls/hr Documented by: Remdesivir 200 mg/ Sodium (Chloride) 250 mls @ 250 mls/hr IV ONETIME ONE Stop: 03/08/21 15:59 Last Admin: 03/08/21 17:13 Dose: 250 mls/hr Documented by: Potassium Chloride/Sodium Chloride (Normal Saline With 40 Meq Kcl) 1,000 mls @ 125 mls/hr IV ASDIRECTED [facility] Omeprazole (Omeprazole 20 Mg Cap.Cr) 20 mg PO DAILY [facility] Last Admin: 03/09/21 10:24 Dose: 20 mg Documented by: Ondansetron HCl (Ondansetron 4 Mg/2 Ml Sdv) 4 mg IVPUSH ONETIME ONE Stop: 03/08/21 12:00 Last Admin: 03/08/21 12:16 Dose: 4 mg Documented by: Ondansetron HCl (Ondansetron 4 Mg/2 Ml Sdv) Confirm Administered Dose 4 mg .ROUTE .STK-MED ONE Stop: 03/08/21 12:11 Last Admin: 03/08/21 12:19 Dose: Not Given Documented by: - Exam General: Reports: Alert, Oriented HEENT: Reports: Pupils Equal, Pupils Reactive, EOMI Neck: Reports: Supple Lungs: Reports: Clear to Auscultation, Normal Respiratory Effort Cardiovascular: Reports: Regular Rate, Regular Rhythm GI/Abdominal Exam: Normal Bowel Sounds, Soft, Non-Tender, No Organomegaly Back Exam: Reports: Normal Inspection, Full Range of Motion Extremities: Normal Inspection, Normal Range of Motion, Non-Tender, No Pedal Edema, Normal Capillary Refill Skin: Reports: Warm, Dry, Intact Wound/Incisions: Reports: Healing Well Neurological: Reports: No New Focal Deficit Psy/Mental Status: Reports: Alert, Normal Affect, Normal Mood
[2021-03-10 11:02] LABS: CHLORIDE,CL 104 mmol/L (98-107); SODIUM,NA 142 mmol/L (136-145)
[2021-03-10 13:27] VITALS: BP 110/61; PULSE 75
[2021-03-10] MEDS: REMDESIVIR 100 MG in Sodium Chloride 0.9% 100 ML IV SCH (15:27)
== END 2021-03-10 18:40 | disposition home or self-care (01) ==
LOC: VM.ED 10:50 → VM.MS 13:55
PROVIDERS: ADMIT Physician Assistant; ATTEND Physician Assistant
DX: U07.1 COVID-19 (principal); R42 Dizziness and giddiness; R11.0 Nausea; E78.00 Pure hypercholesterolemia, unspecified; E03.9 Hypothyroidism, unspecified; E66.9 Obesity, unspecified; I50.9 Heart failure, unspecified; Z79.84 Long term (current) use of oral hypoglycemic drugs; Z79.890 Hormone replacement therapy; E11.40 Type 2 diabetes mellitus with diabetic neuropathy, unspecified; G47.30 Sleep apnea, unspecified; Z90.49 Acquired absence of other specified parts of digestive tract; Z88.8 Allergy status to other drugs, medicaments and biological substances; Z88.2 Allergy status to sulfonamides; Z79.899 Other long term (current) drug therapy; Z98.890 Other specified postprocedural states
CPT/HCPCS: 36415; 80053; 82248; 82728; 82947; 83605; 83615; 83735; 85025; 85027; 85610; 85730; 86140; 87040; 94660; 94760; 96365; 96372; 96374; 96375; 96376; 99217; 99220; 99225; 99285-25; A9270-GY; G0378; J1650; J2405; J7030; J7050; U0002

== ENCOUNTER 2021-04-05 07:54 | Day surgery (SDC) | payer MEDICARE, OTHER ==
[~2021-04-05 07:54] MED LIST: Lactated Ringers 1,000 ML IV SCH; Sodium Chloride 0.9% 10 ML Syringe FLUSH PRN
[2021-04-05] MEDS ORDERED: Citric Acid/Sodium Citrate Solution 30 ML Cup PO ONE (09:18)
[2021-04-05] MEDS ORDERED: fentaNYL 100 MCG/2 ML SDV ONE (09:25)
[2021-04-05] MEDS ORDERED: Propofol 200 MG/20 ML SDV ONE ×2 (09:25→11:05)
[2021-04-05 12:13] VITALS: BP 123/75; PULSE 86
--- NOTE | 2021-04-05 13:53 | OR ---
SURGERY DATE: 04/05/2021. REFERRING PROVIDER: ESTEPHANIA Mathew PRE-OPERATIVE DIAGNOSES: 1. Chronic nausea. 2. History of Sandhu's esophagus. 3. Chronic gastroesophageal reflux disease, especially right away in the morning when she wakes up. The patient's last esophagogastroduodenoscopy was about 11 years ago per patient report. This was in [place]. POST-OPERATIVE DIAGNOSES: 1. Mild diffuse gastritis. Cold biopsies taken from antrum for Helicobacter pylori and path. 2. 2 cm sliding-type hiatal hernia with some minimal esophagitis. I do not see anything that resembles any ongoing Sandhu's esophagus. 3. Normal-appearing duodenum. Cold biopsies taken given the patient's history of chronic diarrhea. PROCEDURE: Esophagogastroduodenoscopy with cold biopsies taken x2 sites. SURGEON: John Balderas M.D. ANESTHESIA: Monitored anesthesia care. Mariaa is a 66-year-old female who was brought to the endoscope suite after discussion of risks and benefits (including but not limited to reaction to medication, bleeding, infection, aspiration, perforation). Informed consent was obtained for monitored anesthesia care and esophagogastroduodenoscopy along with possible biopsy and/or dilatation. Pre-procedure exam including oral cavity was unremarkable. IV, oxygen, and monitors were placed. Patient was placed in the left lateral position and sedation was administered. A bite block was placed gently and scope lightly lubricated and passed through the bite block and over the tongue. Hypopharynx and vocal cords were visualized and unremarkable. Scope was passed through the cricopharynx and into the esophagus. The scope was then passed through the distal esophagus and the GE junction was visualized and photographed. The GE junction was remarkable for small 2 cm sliding-type hiatal hernia. There was some minimal esophagitis noted, but no worrisome tissue findings, and no strictures or rings noted. Vocal cords were visualized and unremarkable. The scope was advanced into the stomach and gastric aguero was suctioned. Pylorus was identified and intubated and then the scope was advanced to the third portion of the duodenum. The second portion of the duodenum was unremarkable. Cold biopsies x3 bites taken. The duodenal bulb was visualized and unremarkable. The scope was brought back into the stomach. The pylorus and the antrum revealed some mild diffuse gastritis. Cold biopsies were taken for path and H. pylori. The scope was retroflexed to visualize the angularis, fundus, body, and cardia. These were remarkable for some mild diffuse gastritis. I did not see any worrisome masses or ulcers. The stomach was desufflated of air and then the scope was slowly withdrawn, and the esophagus was closely visualized during withdrawal all the way into the posterior pharynx. This was unremarkable. The patient tolerated the procedure well and went to recovery in stable condition. The patient was monitored until at baseline status. Findings and discharge instructions were reviewed and the patient was discharged in good condition. COMPLICATIONS: None. TOTAL TIME: 13 minutes. ESTIMATED BLOOD LOSS: 1 to 2 mL. RECOMMENDATIONS/FOLLOW-UP: We will await results of path report and send letter with results. In the meantime, I will do a prescription to have her increase her omeprazole to 40 mg daily from current dose of 20 mg daily. I would like to kindly thank Shaka Rizzo for this referral. DMB: 04/05/2021 11:54:31 MODL: 04/05/2021 12:26:51 /[id number]
--- NOTE | 2021-04-05 13:53 | OR ---
DATE OF SURGERY: 04/05/2021. REFERRING PROVIDER: ESTEPHANIA Mathew PRE-OPERATIVE DIAGNOSES: 1. Chronic diarrhea for number of years. 2. Chronic nausea. POST-OPERATIVE DIAGNOSES: 1. 2 mm polyp at 100 cm, removed using cold forceps. 2. Normal-appearing colonic mucosa. Random biopsies taken from each segment. 3. Normal-appearing distal ileum. Cold biopsy taken. PROCEDURE: Colonoscopy with polypectomy x1 using cold forceps and random biopsies taken using cold forceps from distal small intestine and each segment of the colon. SURGEON: John Balderas M.D. ANESTHESIA: Monitored anesthesia care. BOWEL PREP: Good. Mariaa is a 66-year-old female who was brought to the endoscopy suite after discussing risks and benefits of the procedure. Informed consent was obtained for conscious sedation and colonoscopy with or without biopsy and/or polypectomy. We also discussed possibility of missed lesions. Pre-procedure exam was unremarkable. IV, oxygen, and monitors were placed. The patient was placed in the left lateral decubitus position. Sedation was administered and a digital rectal exam was performed and unremarkable except for some external hemorrhoidal skin tags, not acutely inflamed. Colonoscope was passed into the rectum and slowly advanced all the way to the cecum. Cecum was viewed and photographed. Ileocecal valve was intubated and distal ileum was normal in appearance. Cold biopsy x1 bite taken. The colonoscope was slowly withdrawn and the mucosa was closely observed in a direct circumferential manner. Random biopsies were taken from each segment of the colon using cold forceps. The ascending colon was remarkable for 2 mm polyp at 100 cm, removed using cold forceps. The transverse colon was unremarkable. The descending colon was unremarkable. The sigmoid colon was unremarkable. Retroflexion was performed and rectal mucosa was unremarkable except for some mild hemorrhoids. Scope was removed. The patient tolerated the procedure well. The patient was monitored until that baseline status. Discharge instructions were reviewed and the patient was discharged in good condition. COMPLICATIONS: None. TOTAL TIME: 27 minutes. ESTIMATED BLOOD LOSS: 1 to 2 mL. RECOMMENDATIONS/FOLLOW-UP: We will await results of path report to determine ideal followup interval. I would like to kindly thank Shaka Rizzo for this referral. DMB: 04/05/2021 11:58:16 MODL: 04/05/2021 12:56:33 /[id number]
== END 2021-04-05 12:47 | disposition home or self-care (01) ==
LOC: VM.SDS 07:54
PROVIDERS: ATTEND Family Medicine
DX: D12.6 Benign neoplasm of colon, unspecified (principal); K29.70 Gastritis, unspecified, without bleeding; K44.9 Diaphragmatic hernia without obstruction or gangrene; K21.00 Gastro-esophageal reflux disease with esophagitis, without bleeding; K64.4 Residual hemorrhoidal skin tags; I10 Essential (primary) hypertension; G47.33 Obstructive sleep apnea (adult) (pediatric); E11.9 Type 2 diabetes mellitus without complications; E03.9 Hypothyroidism, unspecified; E55.9 Vitamin D deficiency, unspecified; F32.9 Major depressive disorder, single episode, unspecified; H91.8X9 Other specified hearing loss, unspecified ear; M19.032 Primary osteoarthritis, left wrist; E66.9 Obesity, unspecified; Z68.38 Body mass index [BMI] 38.0-38.9, adult; Z88.2 Allergy status to sulfonamides; Z88.8 Allergy status to other drugs, medicaments and biological substances; Z98.890 Other specified postprocedural states
CPT/HCPCS: 00813; 82947; 88305; A9270-GY; J2704; J3010; J7120

== ENCOUNTER 2021-10-22 13:05 | Inpatient (IN) | payer MEDICARE, OTHER ==
[2021-10-22] MEDS ORDERED: Sodium Chloride 0.9% 10 ML Syringe FLUSH PRN (13:28)
[2021-10-22] MEDS ORDERED: LORazepam 2 MG/ML SDV IVPUSH ONE ×4 (13:59→16:07)
[2021-10-22 14:22] LABS: CHLORIDE,CL 104 mmol/L (98-107); SODIUM,NA 141 mmol/L (136-145)
[2021-10-22 14:24] LABS: ANION GAP 16.4 mmol/L (5-15)
[2021-10-22 14:25] LABS: ACETAMINOPHEN 0 ug/ml (10-30)
[2021-10-22] MEDS ORDERED: cefTRIAXone 1 GM Vial IVPUSH ONE (14:26)
--- NOTE | 2021-10-22 14:33 | CT ---
[id number] CT/CT Head WO IV EXAM: CT Head WO IV CLINICAL DATA: CHANGE IN MENTAL STATUS COMPARISON: No previous similar exam is available for comparison. FINDINGS: There is motion artifact There is no mass or mass effect. There is no hemorrhage or hydrocephalus. There are no extra-axial fluid collections. There are no sites of abnormal attenuation. IMPRESSION: NO PLAIN CT EVIDENCE OF ACUTE INTRACRANIAL PROCESS. Micah Tom MD 10/22/21 0732 Thank you for allowing us to participate in the care of your patient.
--- NOTE | 2021-10-22 14:34 | EDM.PDOC ---
ED HPI GENERAL MEDICAL PROBLEM - General Chief Complaint: Behavioral/Psych Time Seen by Provider: 10/22/21 13:25 Source of Information: Reports: EMS, Family History Limitations: Reports: Altered Mental Status - History of Present Illness INITIAL COMMENTS - FREE TEXT/NARRATIVE: Mariaa is a 66 y/o female who has been fine until this AM when her reported that she was very confused. He found her attempting to get into the washer in the laundry room and was opening the door inappropriately and then turning the dryer knob. Last night she was fine until bedtime when he reports she walked into the bedroom and seemed quite confused. He helped he put her CPAP on last night and she rested. Then this AM he found her in the laundry room and she seemed quite confused. This was about 0830. He then assisted her back to bed and put on her CPAP and she slept a couple hours. She then woke up and was quite confused and seemed to be in some emotional distress. Glucose was 269 per EMS. According to the she has not been ill. Patient was a bit combative and very confused during the ambulance ride. On arrival to the ER pt responds to her name, but then will not answer any questions when asked. According to her who arrives later to the ER, patient had an episode of acute confusion in April 2021 and ended up in [facility] and some med adjustments were made. He dx at that admisionn with Psychosis with Acute Encephalopathy and attributed the sx to SNRI withdrawal. According to her he some times helps with her meds, but if she is up before him then she takes her own meds. - Related Data Allergies Allergy/AdvReac Type Severity Reaction Status Date / Time pseudoephedrine Allergy Cannot Verified 10/22/21 13:41 [From Actifed] Remember Sulfa (Sulfonamide Allergy Rash Verified 10/22/21 13:41 Antibiotics) triprolidine [From Actifed] Allergy Cannot Verified 10/22/21 13:41 Remember guaifenesin [From Robitussin] AdvReac Nausea Verified 10/22/21 13:41 Home Meds: Home Meds Levothyroxine [Synthroid] 50 mcg PO DAILY 09/22/16 [History] Omeprazole 20 mg PO BID 09/22/16 [History] Venlafaxine HCl [Venlafaxine ER] 150 mg PO DAILY 09/22/16 [History] metFORMIN HCl [Metformin HCl] 1,000 mg PO BID 09/22/16 [History] Cholecalciferol (Vitamin D3) [Vitamin D3] 1,000 unit PO DAILY 09/18/20 [History] Rosuvastatin [Crestor] 5 mg PO DAILY 09/18/20 [History] Ondansetron [Zofran ODT] 4 mg PO Q4H PRN 03/22/21 [History] Empagliflozin [Jardiance] 10 mg PO 10/22/21 [History] Semaglutide [Rybelsus] 7 mg PO QAM 10/22/21 [History] Past Medical History HEENT History: Reports: Allergic Rhinitis, Cataract, Hard of Hearing, Sinusitis, Other (See Below) Other HEENT History: paradoxic hearing loss; both astigmatism; dry eyes; epiphora; rt ptosis Cardiovascular History: Reports: Heart Failure, High Cholesterol, Hypertension, Other (See Below) Other Cardiovascular History: mitral valve prolapse Respiratory History: Reports: Sleep Apnea, Other (See Below) Other Respiratory History: Cpap with Oxygen at night Gastrointestinal History: Reports: Chronic Diarrhea, GERD, Other (See Below) Other Gastrointestinal History: Barrets Esophagus Musculoskeletal History: Reports: Back Pain, Chronic, Osteoarthritis, Other (See Below) Other Musculoskeletal History: DJD; pes planus Neurological History: Reports: Neuropathy, Diabetic Psychiatric History: Reports: Depression Endocrine/Metabolic History: Reports: Diabetes, Type II, Hypothyroidism, Obesity/BMI 30+, Vitamin D Deficiency Dermatologic History: Reports: Other (See Below) Other Dermatologic History: furuncle, BRITTLE NAILS - Infectious Disease History Infectious Disease History: Reports: MRSA, Novel Coronavirus - Past Surgical History GI Surgical History: Reports: Cholecystectomy, Hernia Repair/Other, Other (See Below) Other GI Surgeries/Procedures: Umbilical hernia repair Female Surgical History: Reports: Breast Reduction, Hysterectomy Musculoskeletal Surgical History: Reports: Carpal Tunnel, Other (See Below) Other Musculoskeletal Surgeries/Procedures:: Neck ruptured discs, C4-5 fusion Social & Family History - Tobacco Use Tobacco Use Status *Q: Unknown Ever Used Tobacco Review of Systems - Review of Systems Review Of Systems: Unable To Obtain Reason Not Obtained: Patinet unable to answer any questions ED EXAM, GENERAL - Physical Exam Exam: See Below Exam Limited By: Altered Mental Status General Appearance: Alert (Obese elderly female. Her vitals are stable. She is lying on her right side on the ER cart and appears to have been crying.), Other (Will nto answer any questions.) Eye Exam: Bilateral Eye: PERRL Ears: Normal External Exam, Normal Canal, Hearing Grossly Normal, Normal TMs Nose: Normal Inspection, Normal Mucosa Throat/Mouth: Normal Inspection, Normal Lips, Normal Voice Head: Atraumatic, Normocephalic Neck: Normal Inspection, Supple Respiratory/Chest: No Respiratory Distress, Lungs Clear, Normal Breath Sounds Cardiovascular: Normal Peripheral Pulses, Regular Rate, Rhythm, No Murmur GI/Abdominal: Normal Bowel Sounds, Soft, Other (Obese) (Female) Exam: Deferred Rectal (Female) Exam: Deferred Back Exam: Normal Inspection Extremities: Normal Inspection, Normal Range of Motion, No Pedal Edema, Normal Capillary Refill Neurological: Alert, Confused, Disoriented, Other (Will not answer questions) Psychiatric: Tearful Skin Exam: Warm, Dry, Intact, Normal Color Lymphatic: No Adenopathy Course - Vital Signs Text/Narrative:: 1325 Patient was seen on arrival to the ER. She was quite confused. Labs, CT, Xrays, and EKG ordered. Patient was quite combative in CT and Lorazepam 1mg IVP given. Upon return to the ER, she would not cooperate with staff for the EKG. 1425 Lactic Acid noted 3.9, WBC=3.9, Mg=1.6, Troponin neg, CMP Xqzyptp=012. ETOH, Salicylates, APAP neg. Patient noted to have gotten up from the ER cart and went over to the corner of the Trauma room and squatted down to void. Very difficult to get patient back into bed as she was confused and uncooperative. She was given Ceftriaxone 1gm IVP for the elevated lactic acid and low grade fever. 1445 Patient continues to be very confused and combative and rolling around in bed. Lorazepam 1mg IVP given. 1535 [facility] [employer] contacted, unable to accept pt due to high census 1536 [facility] [employer] contacted, unable to accept pt due to high census 1539 [facility] [employer] contacted, unable to accept pt due to high census 1540 Dr Lolly Hong contacted and [employer]CHNICIAN reviewed case with MD. Note patient in Respiratory Alkalosis with secondary Metabolic Alkalosis. Will plan acute adm ission. See H&P and orders per Dr Hong. Last Recorded V/S: Last Vital Signs Temp 38.2 C H 10/22/21 13:05 Pulse 99 10/22/21 15:00 Resp 28 H 10/22/21 15:00 BP 111/57 L 10/22/21 15:00 Pulse Ox 98 10/22/21 15:00 - Orders/Labs/Meds Orders: Active Orders 24 hr Category Date Time Status Patient Status [ADT] Routine ADT 10/22/21 15:52 Ordered EKG Documentation Completion [RC] STAT Care 10/22/21 13:28 Active Sodium Chloride 0.9% [Saline Flush] Med 10/22/21 13:28 Active 10 ml FLUSH ASDIRECTED PRN Saline Lock Insert [OM.PC] Stat Oth 10/22/21 13:28 Ordered Medication Orders Sodium Chloride (Sodium Chloride 0.9% 10 Ml Syringe) 10 ml FLUSH ASDIRECTED PRN PRN Reason: Keep Vein Open Labs: Laboratory Tests 10/22/21 10/22/21 10/22/21 Range/Units 13:44 13:44 13:44 WBC 10.9 H (4.0-10.0) x10^3/uL RBC 4.35 (4.00-5.50) x10^6/uL Hgb 13.6 (12.0-16.0) g/dL Hct 38.1 (33.0-47.0) % MCV 87.6 (78.0-93.0) fL MCH 31.3 (26.0-32.0) pg MCHC 35.7 (32.0-36.0) g/dL RDW Coeff of Lily 12.2 (10.0-15.0) % Plt Count 253 (130-400) x10^3/uL Immature Gran % (Auto) 0.20 (0.00-0.43) % Neut % (Auto) 64.0 (50.0-80.0) % Lymph % (Auto) 23.1 L (25.0-50.0) % [place] % (Auto) 10.1 (2.0-11.0) % Eos % (Auto) 2.0 (0.0-4.0) % Baso % (Auto) 0.6 (0.2-1.2) % Neut # (Auto) 7.0 (1.8-7.7) x10^3/uL Lymph # (Auto) 2.5 (1.0-4.8) x10^3/uL [place] # (Auto) 1.1 H (0.0-0.8) x10^3/uL Eos # (Auto) 0.2 (0.0-0.5) x10^3/uL Baso # (Auto) 0.1 (0.0-0.2) x10^3/uL Immature Gran # (Auto) 0.02 (0.00-0.07) x10^3/uL POC ABG pH (7.35-7.45) pH POC ABG pCO2 (35-48) mmHg POC ABG pO2 (83-108) mmHg POC ABG HCO3 (21-28) mmol/L POC ABG Total CO2 (22-29) mmol/L POC ABG O2 Sat (94-98) % POC ABG Base Excess ((-2)-3) mmol/L POC FiO2 Sodium 141 (136-145) mmol/L Potassium 3.4 L (3.5-5.1) mmol/L Chloride 104 (98-107) mmol/L Carbon Dioxide 24 (21-32) mmol/L Anion Gap 16.4 H (5-15) mmol/L BUN 16 (7-18) mg/dL Creatinine 1.0 (0.55-1.02) mg/dL Est Cr Clr Drug Dosing TNP Estimated GFR (MDRD) 55 Glucose 283 H (70-99) mg/dL Lactic Acid 3.9 H* (0.4-2.0) mmol/L Calcium 10.2 H (8.5-10.1) mg/dL Corrected Calcium 10.5 H (8.5-10.1) mg/dL Magnesium 1.6 L (1.8-2.4) mg/dL Total Bilirubin 1.0 (0.2-1.0) mg/dL AST 51 H (15-37) U/L ALT 56 (14-59) U/L Alkaline Phosphatase 73 (46-116) U/L Troponin I High Sens 7 (<=51) ng/L C-Reactive Protein 0.4 (<=0.9) mg/dL Total Protein 6.8 (6.4-8.2) g/dL Albumin 3.6 (3.4-5.0) g/dL Globulin 3.2 Albumin/Globulin Ratio 1.13 Amylase 29 (25-115) U/L Lipase 173 (73-393) U/L TSH, Ultra Sensitive 2.124 (0.358-3.74) uIU/mL Urine Color (YELLOW) Urine Appearance (CLEAR) Urine pH (5.0-8.0) Ur Specific [place] Urine Protein (NEGATIVE) mg/dL Urine Glucose (UA) (NEGATIVE) mg/dL Urine Ketones (NEGATIVE) mg/dL Urine Occult Blood (NEGATIVE) Urine Nitrite (NEGATIVE) Urine Bilirubin (NEGATIVE) Urine Urobilinogen (0.2) EU/dL Ur Leukocyte Esterase (NEGATIVE) Salicylates (2.8-20(Therapeutic)) mg/dL Urine Opiates Screen (NEGATIVE) Ur Buprenorphine Scrn (NEGATIVE) Ur Oxycodone Screen (NEGATIVE) Urine Methadone Screen (NEGATIVE) Acetaminophen 0 L (10-30) ug/ml Ur Barbituates Screen (NEGATIVE) Ur Phencyclidine Scrn (NEGATIVE) Ur Amphetamines Screen (NEGATIVE) U Methamphetamines Scrn (NEGATIVE) Urine MDMA Screen (NEGATIVE) U Benzodiazepines Scrn (NEGATIVE) Urine Cocaine Screen (NEGATIVE) U Marijuana (THC) Screen (NEGATIVE) Ethyl Alcohol < 3 (0-3) mg/dL Influenza Type A RNA (NEGATIVE) RSV RNA (INAAT) (NEGATIVE) Influenza Type B RNA (NEGATIVE) SARS-CoV-2 RNA (CARIE) (NEGATIVE) 10/22/21 10/22/21 10/22/21 Range/Units 13:44 14:14 15:16 WBC (4.0-10.0) x10^3/uL RBC (4.00-5.50) x10^6/uL Hgb (12.0-16.0) g/dL Hct (33.0-47.0) % MCV (78.0-93.0) fL MCH (26.0-32.0) pg MCHC (32.0-36.0) g/dL RDW Coeff of Lily (10.0-15.0) % Plt Count (130-400) x10^3/uL Immature Gran % (Auto) (0.00-0.43) % Neut % (Auto) (50.0-80.0) % Lymph % (Auto) (25.0-50.0) % [place] % (Auto) (2.0-11.0) % Eos % (Auto) (0.0-4.0) % Baso % (Auto) (0.2-1.2) % Neut # (Auto) (1.8-7.7) x10^3/uL Lymph # (Auto) (1.0-4.8) x10^3/uL [place] # (Auto) (0.0-0.8) x10^3/uL Eos # (Auto) (0.0-0.5) x10^3/uL Baso # (Auto) (0.0-0.2) x10^3/uL Immature Gran # (Auto) (0.00-0.07) x10^3/uL POC ABG pH 7.67 H (7.35-7.45) pH POC ABG pCO2 18 L (35-48) mmHg POC ABG pO2 79 L (83-108) mmHg POC ABG HCO3 21.3 (21-28) mmol/L POC ABG Total CO2 21.5 L (22-29) mmol/L POC ABG O2 Sat 98.2 H (94-98) % POC ABG Base Excess 1 ((-2)-3) mmol/L POC FiO2 21 Sodium (136-145) mmol/L Potassium (3.5-5.1) mmol/L Chloride (98-107) mmol/L Carbon Dioxide (21-32) mmol/L Anion Gap (5-15) mmol/L BUN (7-18) mg/dL Creatinine (0.55-1.02) mg/dL Est Cr Clr Drug Dosing Estimated GFR (MDRD) Glucose (70-99) mg/dL Lactic Acid (0.4-2.0) mmol/L Calcium (8.5-10.1) mg/dL Corrected Calcium (8.5-10.1) mg/dL Magnesium (1.8-2.4) mg/dL Total Bilirubin (0.2-1.0) mg/dL AST (15-37) U/L ALT (14-59) U/L Alkaline Phosphatase (46-116) U/L Troponin I High Sens (<=51) ng/L C-Reactive Protein (<=0.9) mg/dL Total Protein (6.4-8.2) g/dL Albumin (3.4-5.0) g/dL Globulin Albumin/Globulin Ratio Amylase (25-115) U/L Lipase (73-393) U/L TSH, Ultra Sensitive (0.358-3.74) uIU/mL Urine Color (YELLOW) Urine Appearance (CLEAR) Urine pH (5.0-8.0) Ur Specific [place] Urine Protein (NEGATIVE) mg/dL Urine Glucose (UA) (NEGATIVE) mg/dL Urine Ketones (NEGATIVE) mg/dL Urine Occult Blood (NEGATIVE) Urine Nitrite (NEGATIVE) Urine Bilirubin (NEGATIVE) Urine Urobilinogen (0.2) EU/dL Ur Leukocyte Esterase (NEGATIVE) Salicylates < 0.2 L (2.8-20(Therapeutic)) mg/dL Urine Opiates Screen (NEGATIVE) Ur Buprenorphine Scrn (NEGATIVE) Ur Oxycodone Screen (NEGATIVE) Urine Methadone Screen (NEGATIVE) Acetaminophen (10-30) ug/ml Ur Barbituates Screen (NEGATIVE) Ur Phencyclidine Scrn (NEGATIVE) Ur Amphetamines Screen (NEGATIVE) U Methamphetamines Scrn (NEGATIVE) Urine MDMA Screen (NEGATIVE) U Benzodiazepines Scrn (NEGATIVE) Urine Cocaine Screen (NEGATIVE) U Marijuana (THC) Screen (NEGATIVE) Ethyl Alcohol (0-3) mg/dL Influenza Type A RNA Negative (NEGATIVE) RSV RNA (INAAT) Negative (NEGATIVE) Influenza Type B RNA Negative (NEGATIVE) SARS-CoV-2 RNA (CARIE) Negative (NEGATIVE) 10/22/21 10/22/21 Range/Units 15:19 15:19 WBC (4.0-10.0) x10^3/uL RBC (4.00-5.50) x10^6/uL Hgb (12.0-16.0) g/dL Hct (33.0-47.0) % MCV (78.0-93.0) fL MCH (26.0-32.0) pg MCHC (32.0-36.0) g/dL RDW Coeff of Lily (10.0-15.0) % Plt Count (130-400) x10^3/uL Immature Gran % (Auto) (0.00-0.43) % Neut % (Auto) (50.0-80.0) % Lymph % (Auto) (25.0-50.0) % [place] % (Auto) (2.0-11.0) % Eos % (Auto) (0.0-4.0) % Baso % (Auto) (0.2-1.2) % Neut # (Auto) (1.8-7.7) x10^3/uL Lymph # (Auto) (1.0-4.8) x10^3/uL [place] # (Auto) (0.0-0.8) x10^3/uL Eos # (Auto) (0.0-0.5) x10^3/uL Baso # (Auto) (0.0-0.2) x10^3/uL Immature Gran # (Auto) (0.00-0.07) x10^3/uL POC ABG pH (7.35-7.45) pH POC ABG pCO2 (35-48) mmHg POC ABG pO2 (83-108) mmHg POC ABG HCO3 (21-28) mmol/L POC ABG Total CO2 (22-29) mmol/L POC ABG O2 Sat (94-98) % POC ABG Base Excess ((-2)-3) mmol/L POC FiO2 Sodium (136-145) mmol/L Potassium (3.5-5.1) mmol/L Chloride (98-107) mmol/L Carbon Dioxide (21-32) mmol/L Anion Gap (5-15) mmol/L BUN (7-18) mg/dL Creatinine (0.55-1.02) mg/dL Est Cr Clr Drug Dosing Estimated GFR (MDRD) Glucose (70-99) mg/dL Lactic Acid (0.4-2.0) mmol/L Calcium (8.5-10.1) mg/dL Corrected Calcium (8.5-10.1) mg/dL Magnesium (1.8-2.4) mg/dL Total Bilirubin (0.2-1.0) mg/dL AST (15-37) U/L ALT (14-59) U/L Alkaline Phosphatase (46-116) U/L Troponin I High Sens (<=51) ng/L C-Reactive Protein (<=0.9) mg/dL Total Protein (6.4-8.2) g/dL Albumin (3.4-5.0) g/dL Globulin Albumin/Globulin Ratio Amylase (25-115) U/L Lipase (73-393) U/L TSH, Ultra Sensitive (0.358-3.74) uIU/mL Urine Color Yellow (YELLOW) Urine Appearance Clear (CLEAR) Urine pH 8.5 H (5.0-8.0) Ur Specific [place] 1.020 Urine Protein Negative (NEGATIVE) mg/dL Urine Glucose (UA) 100 H (NEGATIVE) mg/dL Urine Ketones 40 H (NEGATIVE) mg/dL Urine Occult Blood Negative (NEGATIVE) Urine Nitrite Negative (NEGATIVE) Urine Bilirubin Negative (NEGATIVE) Urine Urobilinogen 1.0 (0.2) EU/dL Ur Leukocyte Esterase Negative (NEGATIVE) Salicylates (2.8-20(Therapeutic)) mg/dL Urine Opiates Screen Negative (NEGATIVE) Ur Buprenorphine Scrn Negative (NEGATIVE) Ur Oxycodone Screen Positive H (NEGATIVE) Urine Methadone Screen Negative (NEGATIVE) Acetaminophen (10-30) ug/ml Ur Barbituates Screen Negative (NEGATIVE) Ur Phencyclidine Scrn Negative (NEGATIVE) Ur Amphetamines Screen Negative (NEGATIVE) U Methamphetamines Scrn Negative (NEGATIVE) Urine MDMA Screen Negative (NEGATIVE) U Benzodiazepines Scrn Positive H (NEGATIVE) Urine Cocaine Screen Negative (NEGATIVE) U Marijuana (THC) Screen Negative (NEGATIVE) Ethyl Alcohol (0-3) mg/dL Influenza Type A RNA (NEGATIVE) RSV RNA (INAAT) (NEGATIVE) Influenza Type B RNA (NEGATIVE) SARS-CoV-2 RNA (CARIE) (NEGATIVE) Meds: Medications Generic Name Dose Route Start Last Admin Trade Name Freq PRN Reason Stop Dose Admin Sodium Chloride 10 ml 10/22/21 13:28 Sodium Chloride 0.9% 10 Ml Syringe FLUSH ASDIRECTED PRN Keep Vein Open Discontinued Medications Generic Name Dose Route Start Last Admin Trade Name Freq PRN Reason Stop Dose Admin Ceftriaxone Sodium 1 gm 10/22/21 14:26 10/22/21 14:45 Ceftriaxone 1 Gm Vial IVPUSH 10/22/21 14:27 1 gm STAT ONE Administration Lorazepam 1 mg 10/22/21 13:59 10/22/21 14:07 Lorazepam 2 Mg/Ml Sdv IVPUSH 10/22/21 14:00 1 mg STAT ONE Administration Lorazepam 1 mg 10/22/21 14:08 Lorazepam 2 Mg/Ml Sdv IVPUSH 10/22/21 14:09 STAT ONE Lorazepam 1 mg 10/22/21 14:46 10/22/21 14:55 Lorazepam 2 Mg/Ml Sdv IVPUSH 10/22/21 14:47 1 mg STAT ONE Administration - Radiology Interpretation Free Text/Narrative:: CT Head WO=no acute findings XR Chest 1V=negative (See final reports) Departure - Departure Time of Disposition: 15:50 Disposition: Admitted As Inpatient 64 Condition: Fair Clinical Impression: Acute confusion, Acute respiratory alkalosis, Metabolic acidosis, Hx of type 2 diabetes mellitus, Elevated lactic acid level - Discharge Information Referrals: Shaka Rizzo PA-C [Primary Care Provider] - Forms: ED Department Discharge Additional Instructions: -Admit to Acute Care, unabel to transfer patient to [facility], [facility], or [facility] due to high census. Sepsis Event Note (ED) - Focused Exam Vital Signs: Vital Signs Temp Pulse Resp BP Pulse Ox 10/22/21 15:00 99 28 H 111/57 L 98 10/22/21 13:05 38.2 C H 100 28 H 114/57 L 98 - Problem List & Annotations (1) Acute confusion SNOMED Code(s): 041186327 Code(s): R41.0 - DISORIENTATION, UNSPECIFIED Status: Acute Current Visit: Yes (2) Acute respiratory alkalosis SNOMED Code(s): 11951903 Code(s): E87.3 - ALKALOSIS Status: Acute Current Visit: Yes Annotation/Comment:: with Secondary Metabolic Alkalosis; PCO2=18, ph=7.67. (3) Depression SNOMED Code(s): 68629712 Code(s): F32.A - DEPRESSION, UNSPECIFIED Status: Acute Current Visit: Yes Annotation/Comment:: Currently on Effexor XR 150mg qd, has hx of SNRI withdrawal in April 2021. Meds adjusted at that time. (4) Hx of type 2 diabetes mellitus SNOMED Code(s): 773007577 Code(s): Z86.39 - PERSONAL HISTORY OF ENDO, NUTRITIONAL AND METABOLIC DISEASE Status: Acute Current Visit: Yes - Problem List Review Problem List Initiated/Reviewed/Updated: Yes - My Orders Last 24 Hours: My Active Orders 10/22/21 13:28 EKG Documentation Completion [RC] STAT Sodium Chloride 0.9% [Saline Flush] 10 ml FLUSH ASDIRECTED PRN Saline Lock Insert [OM.PC] Stat 10/22/21 15:52 Patient Status [ADT] Routine - Assessment/Plan Last 24 Hours: My Active Orders 10/22/21 13:28 EKG Documentation Completion [RC] STAT Sodium Chloride 0.9% [Saline Flush] 10 ml FLUSH ASDIRECTED PRN Saline Lock Insert [OM.PC] Stat 10/22/21 15:52 Patient Status [ADT] Routine Plan: See above. Dr Hong to write admission orders.
--- NOTE | 2021-10-22 14:55 | CR ---
[id number] RAD/RAD Chest PA or AP 1V EXAM: RAD Chest PA or AP 1V INDICATION: FEVER, TACHYPNEA COMPARISON: None. DISCUSSION/IMPRESSION: Cardiomediastinal silhouette is normal in size and contour. Lungs are clear. No pleural effusion or pneumothorax. Daniel Hernandez MD 10/22/21 [id number] Thank you for allowing us to participate in the care of your patient.
[2021-10-22 15:03] LABS: CORONAVIRUS COVID-19 NAA NEGATIVE (NEGATIVE); RESPIRATORY SYNCYTIAL VIR NAA NEGATIVE (NEGATIVE)
[2021-10-22 15:20] LABS: PCO2 ARTERIAL,POC 18 mmHg (35-48)
[2021-10-22 15:27] LABS: BUPRENORPHINE,URINE NEGATIVE (NEGATIVE); MARIJUANA,URINE NEGATIVE (NEGATIVE); METHYLENEDIOXYMETHAMP,UR NEGATIVE (NEGATIVE)
[2021-10-22 15:28] LABS: PHENCYCLIDINE,URINE NEGATIVE (NEGATIVE)
[2021-10-22] MEDS ORDERED: Haloperidol Lactate 5 MG/ML SDV IV SCH (16:00)
[2021-10-22] MEDS ORDERED: Flumazenil 0.1 MG/ML 5 ML MDV IVPUSH PRN ×2 (16:07→16:22)
[2021-10-22] MEDS ORDERED: 50% Dextrose in Water 50 ML Syringe IVPUSH PRN (16:15)
[2021-10-22] MEDS ORDERED: Glucagon,Human Recombinant 1 MG Vial IM PRN (16:15)
[2021-10-22 16:50] LABS: PCO2 ARTERIAL,POC 22 mmHg (35-48)
[2021-10-22] MEDS: LORazepam 2 MG/ML SDV IVPUSH PRN ×2 (17:45→21:56)
[2021-10-22] MEDS ORDERED: Magnesium Sulfate/Water 2 GM in Premix Bag 1 BAG IV SCH (18:07)
[2021-10-22] MEDS ORDERED: Pantoprazole 40 MG Vial IVPUSH SCH (18:15)
[2021-10-22] MEDS: Haloperidol Lactate 5 MG/ML SDV IV SCH (18:56)
[2021-10-22] MEDS: Insulin Lispro 100 Units/ML 3 ML Vial SUBCUT SCH (18:57)
[2021-10-22] MEDS: Dextrose 5%-0.9% NaCl with KCl 1,000 ML IV SCH (19:01)
--- NOTE | 2021-10-22 19:14 | PCM.SN.2 ---
- Free Text/Narrative Note: Dr. Hong informed me of the consult. I did review labs and told her patient likely has hyperventilation from her psychiatric condition (has been getting Haldol per Dr. Hong report). The hyperventilation is most likely causing the respiratory alkalosis and I do not believe the alkalosis is causing the change in her condition/mental status. I did encourage them to have her blow into a paper bag to see if that helps in the meantime. She is already planning to repeat ABGs. I am not able to see the patient until 10/23/21.
[2021-10-22] MEDS: Furosemide 20 MG/2 ML VIAL IV SCH (19:52)
--- NOTE | 2021-10-22 20:04 | HP ---
CHIEF COMPLAINT: Acute confusion. HISTORY OF PRESENT ILLNESS: The patient is a 66-year-old female, who was brought in by ambulance to the emergency department. Her had called the clinic around noon today, saying the patient just was not able to be redirectable and she was quite confused and so it was recommended she go to the emergency department. It was noted that the patient was trying to get into the washer in the laundry room. She had been opening the door inappropriately, then turning the dryer knob. Last night, she was fine until bedtime. Then he reports she walked into the bedroom and seemed quite confused. He helped her put on her CPAP and then she rested. This morning, he found her in the laundry room, quite confused. The patient slept for a couple of hours, then woke up and confused again. The patient's blood sugar was 269. The patient was quite combative with the ambulance crew. To note, the patient had a similar episode in 05/07/2021 and at that time, it was felt that that confusion was related to her change of her psych medications and she was fine the next day after receiving IV fluids. The patient at that time had been stressed before this had happened. The patient's was present today in the emergency room and he could not contribute anything that might cause the patient to be off today. The patient normally sees ESTEPHANIA Mathew, in the clinic and had just been seen on 10/02 with her doing quite well. She was taking Rybelsus for her diabetes as well as Zofran and she was on metformin and Jardiance. She was taking Effexor XR 150 mg as well as Cymbalta 40 mg a day, her metformin 2 pills twice a day of 500 mg, Prilosec 20 mg twice a day, and glipizide. There is no mention at that note of her being on Wellbutrin; however, her medication list shows that there was a phone call from the patient on 06/21 that the patient wanted to restart her Wellbutrin, so it is unclear she was still taking that or not of SR 150 mg 1 pill a day. The patient herself is not able to give any history whatsoever. She required 3 mg of Ativan to help her calm down in the emergency room, but kept trying to pull off her clothing in the emergency room. MEDICATIONS: She is currently on per her clinic chart show: Duloxetine 40 mg 1 pill daily, furosemide 20 mg 1 pill daily, glipizide extended release 10 mg 1 pill daily, Jardiance 10 mg 1 pill daily, Ketoralac 10 mg 1 pill 4 times a day as needed, levothyroxine 50 mcg 1 pill daily, meloxicam 15 mg 1 pill a day, metformin 500 mg 2 pills twice a day, blood sugar balance pills twice a day, Zofran 4 mg every 6 hours as needed, Crestor 5 mg 1 pill daily, Rybelsus 7 mg daily, Effexor XR 150 mg 1 pill daily, vitamin D3 1000 unit capsules daily. ALLERGIES: She is allergic to Actifed, environmental allergies, hay fever, propane causes nasal congestion, pseudoephedrine intolerance, Robitussin allergic reaction, sulfa drugs cause a rash. PAST MEDICAL HISTORY: The patient has type 2 diabetes mellitus, degenerative joint disease, hypertension, gastroesophageal reflux disease, hypothyroidism, mitral valve prolapse, obesity, obstructive sleep apnea on CPAP, paradoxical hearing loss, senile delirium, vitamin D deficiency, dry eye syndrome, chronic diarrhea, chronic depression, allergic rhinitis. She has had COVID-19 on 05/06/2021. She has had a history of CHF. She has had a history of MRSA before. PAST SURGICAL HISTORY: She has had breast reduction surgery. VACCINATION HISTORY: She had Moderna vaccination on 05/04/2021 and 06/05/2021. SOCIAL HISTORY: The patient is for 38 years. She quit smoking in 1970. She does not consume alcohol or use drugs. She does not have any implants. The patient had 14 years of education. She has 1 child. She has an associate degree with academic program. Previously, she had been an administrative asst. She lives in [place], [place]. She has lived in [place] and in the [facility] and in [place] and [facility] in the past. She studied music in college. She has low tone hearing loss. She has diabetic neuropathy, which has disabled her. She is a [employer]. REVIEW OF SYSTEMS: The patient is not able to give any information due to delirium. does not contribute any comment other than she has a rash in her skin folds on her abdomen. PHYSICAL EXAMINATION: Vital Signs: Showed on admit that her temperature is 38.2, pulse is 100, blood pressure is 114/57, respirations are 28, saturations are 98% on room air. Skin: [place], warm, and dry. She does have some redness in her suprapubic folds. HEENT: Her eyes are not injected. No matter. Her pupils are equal and reactive to light. Tympanic membranes are normal. Pharynx is somewhat dry. Neck: No anterior cervical adenopathy. No nuchal rigidity noted. Heart: Regular rate and rhythm. Lungs: Clear to auscultation. Abdomen: Obese, soft, nontender. Extremities: Obese, but no edema noted. Neurologic: The patient is acutely confused. She will not answer questions. She will not follow commands. She will respond to pain. LABORATORY DATA: Lab that was done in the emergency room showed a white blood cell count 10.9, hemoglobin 13.6, platelets 253 with 64 segs, 23 lymphs. Her blood gases on room air showed pH 7.67, pCO2 18, pO2 79, bicarb 21, O2 sats 98 on room air. Sodium is 141, potassium 3.4, anion gap 16.4, BUN 16, creatinine 1.0, GFR 55, glucose 283, lactic acid 3.9, calcium 10.2, magnesium 1.6, total bilirubin 1.0, AST 51, ALT 56, alkaline phosphatase 73, CRP 0.8, albumin 3.6, amylase 23, lipase 173. Procalcitonin less than 0.05. TSH 2.124. Urinalysis came back showing ketones 40, glucose 100, negative nitrites, negative leukocyte esterase. Urine drug screen did come back positive for oxycodone as well as benzodiazepine. To note, the patient had been given injectable lorazepam in the emergency room, but her has a prescription for oxycodone; the patient never has. The patient's serology for influenza A, COVID, and influenza B were negative. She had a head CT, which came back showing motion artifact. No mass effect or mass. There is no hemorrhage or hydrocephalus. Her chest x-ray came back showing heart has normal contour, lungs were clear, no pleural effusion. The patient had been given 1 g of Rocephin in the emergency department. The patient was given Ativan a total of 3 mg in the emergency room to help calm her down. Additional lab work showed repeat ABGs at 1646, which was about 3 hours later, showed pH 7.61, pCO2 22, pO2 74, bicarb 21. Lactic acid was repeated, had come down to 2.3. Ammonia was checked and it was 29. IMPRESSION: 1. Acute delirium, unclear etiology. 2. Fever of unknown origin. 3. Hypomagnesemia. 4. Type 2 diabetes mellitus. 5. Obstructive sleep apnea. 6. Respiratory alkalosis. 7. Hypertension. 8. Chronic depression. 9. Degenerative joint disease. 10.Gastroesophageal reflux disease. 11.History of congestive heart failure. 12.Hypothyroidism. 13. Obesity. 14. Yeast dermatitis on lower abdominal pannus. PLAN: The patient will be admitted to acute care. She is full code level status per her . I did contact Dr. Ashley Wang for Internal Medicine consult. She is not able to see the patient until tomorrow. The patient will be placed on Lovenox for DVT prophylaxis. A Gamble catheter was placed. Also, I used some nystatin cream to help with her yeast dermatitis. The patient will be placed on sliding scale insulin. We will hold her oral medications until she becomes more alert and responsive and we will use Haldol as well as p.r.n. Ativan to help control the patient and hopefully if we can sedate her, her breathing will slow down and her respiratory alkalosis will resolve. We will check blood gases in the morning. To note, no beds were available when Monica Orourke had contacted [facility] in [place] as well as [facility] in [place] and [facility] in [place]. The patient's status is somewhat guarded due to her not responding to initial treatments. Due to her obesity, I do anticipate her to require higher doses of medications. To note, Shaka AMBROSE, is the patient's primary care provider; however, he does not take care of hospitalized patients. I will care for the patient tonight; however, have to be out of town as of 8 a.m. tomorrow morning and so we will turn her over to on-call provider Dr. Mabel Muniz, and I am also gone on Friday, so she would either need to be cared for by Dr Mabel Muniz or on-call provider that day. GM10/22/2021 18:28:02 MODL: 10/22/2021 20:00:37 /[id number] TEMITOPE
[2021-10-22] MEDS: Nystatin Crm 30 GM Tube TOP SCH (21:57)
[2021-10-23] MEDS: LORazepam 2 MG/ML SDV IVPUSH PRN ×5 (02:15→19:42)
[2021-10-23] MEDS: Dextrose 5%-0.9% NaCl with KCl 1,000 ML IV SCH (02:21)
[2021-10-23] MEDS: Haloperidol Lactate 5 MG/ML SDV IV SCH ×2 (02:27→02:47)
[2021-10-23] MEDS ORDERED: Haloperidol Lactate 5 MG/ML SDV ONE (05:52)
[2021-10-23 07:21] LABS: PCO2 ARTERIAL,POC 37 mmHg (35-48)
[2021-10-23 07:44] LABS: CHLORIDE,CL 107 mmol/L (98-107); SODIUM,NA 143 mmol/L (136-145)
[2021-10-23 07:46] LABS: ANION GAP 12.7 mmol/L (5-15)
[2021-10-23] MEDS ORDERED: Glucagon,Human Recombinant 1 MG Vial IM PRN (08:26)
[2021-10-23] MEDS ORDERED: 50% Dextrose in Water 50 ML Syringe IVPUSH PRN (08:26)
[2021-10-23] MEDS ORDERED: Haloperidol Lactate 5 MG/ML SDV IV PRN (08:51)
[2021-10-23] MEDS: cefTRIAXone 1 GM Vial IVPUSH SCH (08:58)
[2021-10-23] MEDS: Furosemide 20 MG/2 ML VIAL IV SCH (08:58)
[2021-10-23] MEDS: Nystatin Crm 30 GM Tube TOP SCH ×2 (09:02→20:17)
[2021-10-23] MEDS: Insulin Lispro 100 Units/ML 3 ML Vial SUBCUT SCH ×3 (09:05→17:53)
[2021-10-23] MEDS: Insulin Glarg,Human.Rec.Analog 100 Unit/ML SUBCUT SCH (10:32)
[2021-10-23] MEDS: Haloperidol Lactate 5 MG/ML SDV IV PRN ×3 (11:39→23:28)
[2021-10-23] MEDS: Enoxaparin 40 MG/0.4 ML Syringe SUBCUT SCH (11:39)
[2021-10-23] MEDS: Venlafaxine 150 MG Cap.ER PO SCH (14:55)
--- NOTE | 2021-10-23 16:08 | PCM.EKG ---
#1 Interpretation EKG Date: 10/23/21 Time: 15:00 Rhythm: NSR Rate (Beats/Min): 95 EKG Interpretation Comments: wandering basline
[2021-10-23] MEDS ORDERED: LORazepam 2 MG/ML SDV IVPUSH PRN (17:04)
[2021-10-23] MEDS ORDERED: Flumazenil 0.1 MG/ML 5 ML MDV IVPUSH PRN (17:05)
[2021-10-23] MEDS: Omeprazole 20 MG Cap.CR PO SCH (17:49)
--- NOTE | 2021-10-24 00:43 | PN ---
Progress Note for JOSE ENRIQUE KUMARI Date: 10/23/2021 Room #: VM.216 SUBJECTIVE: This is hospital day #2 on a 66-year-old admitted with altered mental status, who does have a history of this, being admitted to [place] for 3 days for delirium, back in April, and at that time, it was felt to be psychosis, encephalopathy, multifactorial from possibly missing some of her SSRI medications or SNRI withdrawal. The patient was brought into the ER by her . She was answering questions, following some commands, but did strange things like got out of bed and urinated on the floor. She had to receive 2 mg of IV Ativan in the ER and in fact received another 8 mg up on the floor, so 12 mg in 24 hours. She has also got 15 mg of IV Haldol just overnight. This morning, she is sleeping. She is sedated. She did follow commands like squeeze my hand. She did not fight too much to get blood work. She did not seem to flinch in pain. She was able to drink a little bit of juice today, but not reliably eat or take her pills. She was just very confused yesterday, was trying to crawl into the washer in the laundry room per her report, so her put her on her CPAP to see if that would help and when she got into the ER, she actually was found to be alkalotic. She had been hyperventilating. She was tachypneic. She had a low-grade fever around 100.7 and her white count was 10.9, so it was felt maybe there was some infection causing this and lactic acid was also mildly elevated, so she did get IV fluids. She did get IV Rocephin. Her white count has normalized. She has had no further fevers. Her blood sugars have been now elevated because she has been getting D5. She is normally on oral agents at home. Ammonia level was normal. Her ABGs normalized. Urine was positive for benzos, which she was getting in the ER and so unclear if the urine was collected maybe after the medications were given, but certainly she did not receive any oxycodone; thinks she maybe took one of his. COVID testing and influenza testing negative. It should be noted also she pulled her Gamble apart, but still has a Gamble in place. She pulled an IV out, but they were able to start it. She will not allow them to apply telemetry. OBJECTIVE: Vital Signs: Her temperature this morning 97.9, pulse 65, blood pressure 105/64, respiratory rate 16, and O2 of 97 on the 2 L. General: She is in no acute distress. She is resting comfortably in bed. Neurologic: She does not open her eyes to verbal or even painful stimuli, but I did open them and her pupils are equal, round, and reactive to light. She is not thrashing about or having any seizure activity. She had a head CT which did not show any acute findings. Heart: Regular rate and rhythm. S1, S2 without murmur. Lungs: Sounds are clear to auscultation bilaterally without crackles or wheezes. Abdomen: Positive bowel sounds. Soft, nondistended, nontender. Extremities: Warm and dry. No edema. They are warm. She is moving all extremities equally. Lab work shows white count down to 7.7, hemoglobin 13, platelets 234. pH 7.42, pCO2 37, pO2 71. Sodium 143, potassium 3.7, chloride 107, bicarb 27, BUN 12, creatinine 0.8, glucose 340, lactic down to 2, calcium 10.1, AST 38, ALT 49, alkaline phosphatase 67. CRP up slightly to 1.3. Albumin 3.3. Lipase normal. Procalcitonin normal x2. Urine yesterday did show her to have 40 ketones, negative leukocyte esterase. ASSESSMENT: 1. Acute psychosis with encephalopathy. Unclear etiology. There was some talk that maybe the patient was not taking her medications appropriately, so she certainly could withdraw from her SNRI, Effexor, again. Also had opioids in her urine despite not being prescribed them. We will decrease her Haldol to 5 mg, but make it q.4 hours and p.r.n. and see how she does. 2. Respiratory alkalosis. This was secondary to hyperventilation from her mental status changes. This has resolved. 3. Underlying depression. We will get her Effexor restarted as soon as she can swallow medications. 4. Type 2 diabetes with hyperglycemia. She is unable to take oral agents. I will give her Lantus 7 units daily. She is already on a sliding scale. We will discontinue IV fluids with the D5. We will also stop the Lasix. 5. Obesity. 6. Deep venous thrombosis prophylaxis. She was placed on Lovenox. 7. Lactic acidosis, resolved. Possible underlying infection, although UA does not show an infection. X-ray was not overly convincing for pneumonia. Could be from her metformin. 8. Sleep apnea. Her brought in her CPAP. She can use that. 9. Hypomagnesemia. Can be replaced IV. We will repeat in the morning. 10.Degenerative joint disease. 11.Gastroesophageal reflux disease. 12.History of congestive heart failure. No further IV Lasix is needed unless she is showing signs of hypoxia, which she is currently improving on her oxygen status. 13.Hypothyroidism. TSH was okay. 14.Yeast dermatitis on the lower abdomen. I did examine today. She is getting nystatin. PLAN: The patient will continue acute cares. We will continue mostly just supportive cares and try to wean her antipsychotic medications and Ativan in hopes that she will clear up from this delirium. We will allow her to eat and drink when she can safely do so. We will restart some of her oral pills like the thyroid and the Effexor. She is a code level 1. I attempted to reach her today, but I was unable to get through. I did talk about removing the Gamble, but she is too out of it to safely urinate, so we will keep it for strict I and O's, but if she pulls it out, it will stay out. Dr. Hong to resume care if the patient is still in the hospital on 10/25. MKA: 10/23/2021 17:04:16 MODL: 10/24/2021 00:38:30 /[id number]
[2021-10-24] MEDS: LORazepam 2 MG/ML SDV IVPUSH PRN (02:26)
[2021-10-24] MEDS: Omeprazole 20 MG Cap.CR PO SCH ×2 (06:35→17:47)
[2021-10-24] MEDS: Haloperidol Lactate 5 MG/ML SDV IV PRN ×2 (06:59→11:31)
[2021-10-24 07:18] LABS: CHLORIDE,CL 106 mmol/L (98-107); SODIUM,NA 144 mmol/L (136-145)
[2021-10-24 07:20] LABS: ANION GAP 15.8 mmol/L (5-15)
[2021-10-24] MEDS ORDERED: Loperamide 2 MG Cap PO PRN (09:11)
[2021-10-24] MEDS: cefTRIAXone 1 GM Vial IVPUSH SCH (09:14)
[2021-10-24] MEDS: Venlafaxine 150 MG Cap.ER PO SCH (09:15)
[2021-10-24] MEDS: Insulin Glarg,Human.Rec.Analog 100 Unit/ML SUBCUT SCH (09:19)
[2021-10-24] MEDS: Insulin Lispro 100 Units/ML 3 ML Vial SUBCUT SCH ×3 (09:30→17:47)
[2021-10-24] MEDS: Nystatin Crm 30 GM Tube TOP SCH ×2 (09:30→21:52)
[2021-10-24] MEDS: Levothyroxine 50 MCG Tab PO SCH (12:17)
[2021-10-24] MEDS ORDERED: OLANZapine 5 MG Tab.DIS PO PRN (12:54)
[2021-10-24] MEDS ORDERED: OLANZapine 10 MG Vial IM PRN (13:00)
[2021-10-24] MEDS: Enoxaparin 40 MG/0.4 ML Syringe SUBCUT SCH (13:39)
--- NOTE | 2021-10-24 22:35 | PN ---
Progress Note for JOSE ENRIQUE KUMARI Date: 10/24/2021 Room #: VM.216 SUBJECTIVE: This is hospital day #3 on a 66-year-old admitted with acute confusion, had required multiple rounds of sedation, but has only needed 4 mg of Ativan since yesterday and has received 20 mg of Haldol in 24 hours. She is more alert this morning. She is answering questions. When asked if she would like some breakfast, she said yes, but she could not tell me what she wanted to eat when she was asked. She could clearly say that she was not having any pain. She is having some loose stools per nursing and aides; yesterday, she had 2. This morning, she gets quite agitated before a loose stool and is able to get transferred to the commode, but then was so weak after it, she had to be Mesfin'd back. She denies that she is having any stomach pain. She had not previously been on antibiotics until this admission. She did get IV Rocephin now for 3 days and has continued to be afebrile with only the 100.7 temperature on admission. had told staff she was constipated before the admission. I talked to her today. He was not quite sure about how she was taking all of her medications, how much Zofran she was taking, but he did think she was on Wellbutrin, but it was discovered she has not filled it since July, but had been feeling both Effexor and duloxetine, so the chances of a serotonin syndrome with other medications interacting are certainly there. He did report she had shoveled so much snow that she took 1 dose of pain pill and she was not normally using pain pills. She pulled her own catheter out overnight. She was able to eat small snacks and take some of her pills today. OBJECTIVE: Vital Signs: Her temperature is 97.9, pulse 88, blood pressure 131/63, respiratory rate 18, and O2 of 94 on room air. General: She is in no acute distress. Heart: Regular rate and rhythm. S1, S2 without murmur. Lungs: Sounds are clear to auscultation bilaterally without crackles or wheezes. Abdomen: Positive bowel sounds. Soft, nondistended, nontender. Extremities: Warm and dry. No edema. Mental Status: She is sedated. She answers yes or no questions. She did say a little bit for what she wanted to eat, but otherwise did not converse further to answer review of systems questions. Her lab work shows white count normal at 8.9, hemoglobin 13.5, platelets 254. Sodium 144, potassium 3.8, chloride 106, bicarb 26, BUN 9, creatinine 0.7, glucose 229, calcium corrected 10.2, AST 39 and stable from 38 yesterday, ALT 55, ammonia normal yesterday at 24, albumin 3.5, procalcitonin was less than 0.05 yesterday. ASSESSMENT: 1. Acute psychosis with encephalopathy. Etiology is unclear. The patient is slowly improving, but when she becomes more alert, she still has agitation. We are going to try to switch her over to oral and IM p.r.n. Zyprexa instead of the Haldol and also try to wean from the 2 mg Ativan doses to 1. 2. Respiratory alkalosis. This was from hyperventilation. Her said she was breathing 60 respirations a minute. This has resolved. 3. Underlying sleep apnea. She has her CPAP machine here and should use it. 4. Underlying depression. She was able to take her Effexor today. I have stopped the Cymbalta. We will keep her off Wellbutrin as she was not on that at home. 5. Type 2 diabetes with hyperglycemia. She is on insulin in the hospital. We will hold her home diabetes medications like Rybelsus. 6. Obesity. 7. Deep venous thrombosis prophylaxis, on Lovenox. 8. Lactic acidosis, resolved, could have been from her metformin, multifactorial most likely. 9. Fever, concern for infection. She got 3 days of IV antibiotics and no definite source was found, so I will discontinue IV antibiotics. This could be if she did have serotonin syndrome. 10.Hypomagnesemia. I would avoid any oral magnesium given her loose stools. We will add a repeat magnesium level onto her blood and lab. 11.Degenerative joint disease. I would discourage narcotic use. 12.Gastroesophageal reflux disease. 13.History of congestive heart failure. She has had no symptoms of heart failure. No Lasix is indicated. 14.Hypothyroidism, treated. 15.Yeast dermatitis. She has nystatin cream. PLAN: The patient will continue on acute cares, mostly supportive cares at this point with weaning her antipsychotics and antianxiety medications in hopes to clear up her delirium, which was likely contributing to getting the inappropriate medications at home or at least taking them inappropriately. She did get her COVID Moderna shot, the first one right before her episode in April, but did fine with the second shot and has not yet had her booster. For DVT prophylaxis, we will continue on Lovenox. She has not had previous psychosis other than the one spell in April and does usually do quite well on her own. She does not have a psychiatrist. , David, was updated today at the bedside. Dr. Hong to assume care in the morning. MKA: 10/24/2021 17:01:44 MODL: 10/24/2021 22:31:18 /[id number]
[2021-10-25] MEDS: Omeprazole 20 MG Cap.CR PO SCH (06:41)
[2021-10-25 07:02] LABS: ANION GAP 12.6 mmol/L (5-15); CHLORIDE,CL 107 mmol/L (98-107); SODIUM,NA 143 mmol/L (136-145)
[2021-10-25] MEDS: Levothyroxine 50 MCG Tab PO SCH (07:43)
[2021-10-25] MEDS: Venlafaxine 150 MG Cap.ER PO SCH (07:43)
[2021-10-25] MEDS: Insulin Glarg,Human.Rec.Analog 100 Unit/ML SUBCUT SCH (07:50)
[2021-10-25] MEDS: Insulin Lispro 100 Units/ML 3 ML Vial SUBCUT SCH (07:50)
[2021-10-25] MEDS: Nystatin Crm 30 GM Tube TOP SCH (07:50)
[2021-10-25] MEDS ORDERED: metFORMIN 500 MG Tab PO SCH (08:30)
[2021-10-25] MEDS ORDERED: Furosemide 20 MG Tab PO PRN (08:42)
[2021-10-25] MEDS ORDERED: atorvaSTATin 10 MG Tab PO SCH (08:45)
--- NOTE | 2021-10-25 09:14 | PN ---
Progress Note for JOSE ENRIQUE KUMARI Date: 10/25/2021 Room #: VM.216 SUBJECTIVE: The patient is back to her normal self. She is not confused or combative. She was not wanting to take insulin shots as she takes pills for her diabetes. They had been held when she was confused and not swallowing well, but she feels stable to go home. In visiting with her more about what happened, she said that she had shoveled snow before this happened and was feeling quite achy/sore. She had taken one of her 's oxycodone. She is known to take metformin and so that possibly could be the culprit of what had caused her to get delirious. Yesterday, her IV fluids were stopped. OBJECTIVE: Vital Signs: Her weight is 105.4 kg, which is down 2 kg from admission. Her pulse is 71, temperature is 36.6, blood pressure is 136/58, respirations are 16, saturations are 95%. General: She is alert, pleasant to visit with. Heart: Regular rate and rhythm without murmurs or bruits. Lungs: Clear to auscultation. Her white blood cell count is 7.1, hemoglobin 14.3. Sodium 143, potassium 3.6, creatinine is 0.7, BUN 10, GFR greater than 60, carbon dioxide 26, glucose 189, magnesium 1.9. IMPRESSION: 1. Delirium, resolved. 2. Respiratory alkalosis. 3. Acute psychotic event. 4. Type 2 diabetes mellitus. 5. Hyponatremia. PLAN: We will let the patient go home today. We will resume her oral diabetic medications and she will only be on Effexor for her mood right now at discharge, and Shaka Burrowss will have her follow up in a week's time to see him in the clinic. GM10/25/2021 08:31:42 MODL: 10/25/2021 09:08:29 /[id number]
[2021-10-25] MEDS ORDERED: glipiZIDE 10 MG Tab.ER PO SCH (09:30)
--- NOTE | 2021-10-25 09:47 | DISCH ---
PRIMARY DIAGNOSES: 1. Acute delirium. 2. Acute psychotic episode, related to delirium 3. Respiratory alkalosis. 4. Type 2 diabetes mellitus. 5. Chronic depression. 6. Lactic acidosis. 7. Fever of unknown origin. 8. Hypomagnesemia. 9. Degenerative joint disease. 10.Gastroesophageal reflux disease. 11.History of congestive heart failure. 12.Hypothyroidism. 13.Yeast dermatitis. SUMMARY OF ADMIT HISTORY AND PHYSICAL: The patient was brought into the emergency room by her on 10/22/2021, being quite confused, unclear etiology. She had had an episode in 04/2021 that was related to missed taking her antidepressant medications and resolved after a day. It was noted that her urine drug screen was positive for oxycodone, which she did admit to taking now because of joint discomfort after shoveling so much. The patient at the time of admission was not able to give history. Her lab on admission showed that her white blood cell count was 10.9, hemoglobin 13.6, platelets 253, segs 64, 23 lymphs. Blood gases on room air showed pH 7.67, pCO2 18, pO2 79, bicarb 21, sats 98% on room air. Sodium 141, potassium 3.4, anion gap 16.4, BUN 16, creatinine 1.0, GFR 55, glucose 208, lactic acid 3.9, calcium 10.2, magnesium 1.6, total bilirubin 1.0, AST 51, ALT 56, alkaline phosphatase 73, CRP 0.8, albumin 3.6, amylase 23, lipase 173. Procalcitonin less than 0.05. TSH 2.174. Urine was positive ketones at 40, glucose 100, negative nitrites, negative leukocyte esterase. Urine drug screen came back positive for oxycodone as well as benzodiazepines, which she had already received in the emergency room. The patient's influenza A, influenza B, and COVID tests were negative. Head CT came back showing motion artifact; no acute abnormalities. Chest x-ray came back showing normal contour. SUMMARY OF HOSPITAL COURSE: The patient was given 1 g of Rocephin as she had had a fever of unknown origin. She was given some IV hydration. She was tried to give benzodiazepines to help sedate her. It took quite a bit to help sedate her. She also did receive Haldol, which eventually finally did help her calm down. Repeat blood gases done a few hours later had not really changed, but by 10/23/2021, the patient's pH was down to 7.42, pCO2 37, oxygen 71, bicarb 24, O2 sats 94. The patient did require 1 shot of Zyprexa to help calm her down. Her AST had improved by 10/23 down to 38. Her ammonia level had been checked and was normal. CRP had gone up to 1.3. Procalcitonin stayed less than 0.05. The patient then had her blood sugars monitored. She was treated with insulin as she was not swallowing well to begin with; however, then she started to become more alert and able to swallow medications. By 10/24/2021, her white blood cell count 8.9, hemoglobin 13.5, her sodium 144, potassium 3.8, creatinine is 0.7, GFR is greater than 60, glucose 268, calcium 9.8, AST was 39. The patient was felt able to be discharged home. MEDICATIONS: Her medications at discharge will be levothyroxine 50 mcg 1 pill daily, metformin 500 mg 2 pills twice a day, Glipizide xl 10 mg one pill once a day, Nystatin cream apply twice a day to affected area, Crestor 5 mg 1 pill daily, rybelsus 7 mg 1 pill daily, venlafaxine extended release 150 mg 1 pill daily, Lasix 20 mg daily p.r.n.Omperazole 20 mg one pill twice a day as needed for dyspepsia We will have the patient follow up with ESTEPHANIA Mathew, in a week's time in the clinic for recheck and he may need to get Psychiatry involved with her care since she has had 2 episodes of acute delirium, but she may have incorrectly taking some of her medications. The patient also had had an Internal Medicine consult by Dr. Ashley Wang. The patient's code level status is full code. She had been treated with Lovenox for DVT prophylaxis when she was not walking around. More than 30 minutes was spent on discharge GM10/25/2021 08:38:49 MODL: 10/25/2021 09:36:56 /[id number] TEMITOPE
[2021-10-25 11:27] VITALS: BP 142/77; PULSE 98
[2021-10-25] MEDS: Enoxaparin 40 MG/0.4 ML Syringe SUBCUT SCH (13:38)
[2021-10-26] MEDS ORDERED: glipiZIDE 10 MG Tab.ER PO SCH (08:00)
== END 2021-10-25 13:35 | disposition home or self-care (01) | DRG 885 ==
LOC: VM.ED 13:05 → VM.MS 15:58
PROVIDERS: ADMIT Family Medicine; ATTEND Family Medicine
DX: F23 Brief psychotic disorder (principal); E87.3 Alkalosis; G93.40 Encephalopathy, unspecified; E87.1 Hypo-osmolality and hyponatremia; E87.2 Acidosis; R41.0 Disorientation, unspecified; E11.65 Type 2 diabetes mellitus with hyperglycemia; E83.42 Hypomagnesemia; K21.9 Gastro-esophageal reflux disease without esophagitis; G47.30 Sleep apnea, unspecified; Z20.822 Contact with and (suspected) exposure to COVID-19; E03.9 Hypothyroidism, unspecified; B37.2 Candidiasis of skin and nail; M19.90 Unspecified osteoarthritis, unspecified site; E66.9 Obesity, unspecified; R06.4 Hyperventilation; G47.33 Obstructive sleep apnea (adult) (pediatric); F32.A Depression, unspecified; H91.90 Unspecified hearing loss, unspecified ear; E11.40 Type 2 diabetes mellitus with diabetic neuropathy, unspecified; I50.9 Heart failure, unspecified; E78.00 Pure hypercholesterolemia, unspecified; I11.0 Hypertensive heart disease with heart failure; Z86.16 Personal history of COVID-19; Z79.84 Long term (current) use of oral hypoglycemic drugs; Z79.890 Hormone replacement therapy; Z79.899 Other long term (current) drug therapy; Z88.2 Allergy status to sulfonamides; Z88.8 Allergy status to other drugs, medicaments and biological substances
CPT/HCPCS: 0241U; 36415; 36600; 70450; 71045; 80048; 80053; 80143; 80179; 80305-QW; 80307; 81003; 82140; 82150; 82803; 82947; 83605; 83690; 83735; 84145; 84443; 84484; 85025; 86140; 93005; 96374; 96375; 96376; 97162-GP; 99284; 99285-25; A9270-GY; C9113; J0696; J1630; J1650; J1815-GY; J1940; J2060; J3475; J3480; J3490